=== PATIENT | female | born 1950 | race Caucasian/White ===

== ENCOUNTER → 2018-05-23 09:42 | Outpatient (CLI) | payer BC, SELFPAY ==
--- NOTE | 2018-05-23 | DI.MRI.S_ITS ---
PROCEDURE: MR ANKLE RT WO CON INDICATIONS: PAIN IN RIGHT FOOT/ANKLE TECHNIQUE: Noncontrast sagittal T1 spin echo and T2 fast spin echo with fat saturation, axial proton density fast spin echo and T2 fast spin echo with fat saturation, coronal T1 spin echo and T2 fast spin echo with fat saturation through the ankle/hindfoot. COMPARISON: None. FINDINGS: Image quality: Excellent. Bones and joints: No definite traumatic bone marrow contusions or fractures, but there is a 1.7 cm diameter area of marrow edema involving the medial talar dome where degenerative osteoarthritic joint space thinning is associated with a small subchondral cortical defect just above the epicenter of the marrow edema beneath. This has an appearance suggestive of an osteochondral defect, likely chronic, with reactive marrow edema. No hindfoot coalitions. There also is a mild degree of talonavicular joint osteoarthritis and a mild to moderate degree of degenerative osteoarthritic change and edema at the interspace between the base of the second and third tarsal bones. Intertarsal degenerative osteophyte is also can be seen at the base of the second and third tarsal bones, with subchondral cyst formation (series 4 image 31). No pathologic joint effusions. Medial structures: The posterior tibialis, flexor digitorum longus, and flexor hallucis longus tendons are intact. The posterior tibial neurovascular bundle appears normal within the tarsal tunnel, without extrinsic mass effect. The deep layer (anterior and posterior tibiotalar ligaments) and superficial layer (tibionavicular, tibiospring, and tibiocalcaneal ligaments) of the deltoid ligament appear normal. The spring ligament components (superomedial calcaneonavicular, medioplantar oblique calcaneonavicular, and inferoplantar longitudinal ligaments) are intact. Lateral structures: The anterior talofibular, calcaneofibular, and posterior talofibular ligaments appear intact. More superiorly, the anterior and posterior tibiofibular ligaments appear intact, as is the intermalleolar ligament. The tibiofibular syndesmosis is normal in width at 2 mm or less. The peroneus longus and brevis tendons demonstrate normal location and morphology. Adjacent bony peroneal tubercle and retrotrochlear prominence are normal in size. The sinus tarsi demonstrates normal fatty signal, without edema, fibrosis, or cyst formation. Visualized sinus tarsi components (cervical ligament, interosseous talocalcaneal ligament, roots of the inferior extensor retinaculum) appear normal. The calcaneonavicular and calcaneocuboid components of the bifurcate ligament appear intact. The dorsal calcaneocuboid ligament appears intact. Anterior structures: The tibialis anterior, extensor hallucis longus, and extensor digitorum longus tendons appear intact. The dorsal talonavicular ligament appears intact. Posterior and plantar structures: Achilles tendon is intact. Medial and lateral bands of the plantar fascia are of normal thickness. No abductor digiti quinti muscle atrophy to suggest [place] neuropathy. IMPRESSION: 1. There is what appears to be a chronic osteochondral injury involving the medial talar dome, where a small defect in the subchondral cortex and the corresponding marrow edema is present over a 1.7 cm diameter area of the medullary space within the talus. Given the overlying thinning of the articular cartilage in this area degenerative origin of this abnormality is suspected. 2. There is osteoarthritic subchondral cyst formation and mild marrow edema involving the distal tarsal bones and the base of the second and third metatarsal bones, chronic in appearance and degenerative in origin. 3. Mild talonavicular degenerative osteophytic change. No ligamentous injuries found. No hindfoot or midfoot coalition identified. Dictated by: Barry Soto M.D. on 05/23/2018 at 13:31 Approved by: Barry Soto M.D. on 05/23/2018 at 13:53
== END ==
PROVIDERS: Visit Provider Podiatrist
DX: M25.571 Pain in right ankle and joints of right foot (principal); M19.071 Primary osteoarthritis, right ankle and foot
CPT/HCPCS: 73721

== ENCOUNTER 2018-11-15 09:28 | Day surgery (SDC) | payer BC, SELFPAY ==
[2018-10-30 07:29] VITALS: BMI 28.1
[2018-11-15] VITALS (8 sets, daily range): BP systolic 117–152; BP diastolic 64–87; PULSE 78–93; RESP 10–20; TEMP 36.3–36.6; O2SAT 90–100; BMI 27.9
[2018-11-15] MEDS: LACTATED RINGERS 1,000 ML 42 ML IV (10:18)
--- NOTE | 2018-11-15 11:00 | PM.PREOP ---
Pre-operative Note Interval Note History & Physical reviewed/Exam performed by Physician: Yes Changes to H&P: No
--- NOTE | 2018-11-15 11:20 | PM.OP.1 ---
Operative Date/Time/Diagnoses Date of procedure: 11/15/18 Time of procedure: 11:20 Pre-op diagnosis: Right midfoot arthritis Post-op diagnosis: same Procedure & Clinicians Procedure: Right first, second, and third tarsometatarsal joints arthrodesis Same procedure as scheduled: Yes Indications: Painful arthritis right midfoot Surgeon: Piper Hayes Click Yes if Unassisted: Yes Anesthesia Type: General Operative Notes Closure Type: primary Specimen(s): none sent Prosthetic devices, grafts, tissues, transplants, or devices: [place] 3-hole and 4-hole plates, Cotton wedge bone graft Mini-Monster cannulated 4.0 screw Gorilla 3.5 (5) and 2.7 (7) screws 1 cc DBM putty Estimated Blood Loss (mL): 30 Blood products transfused: none Tourniquet time (min): 180 Procedure in detail: The patient was brought to the operating room and placed on the operating table in the supine position. The tourniquet was placed about the right thigh. Well-padded, appropriately aligned. After induction of anesthesia the right foot and ankle were prepped and draped in the usual aseptic manner. The tourniquet was inflated. Incision was made over the 1st metatarsal cuneiform joint. The incision was deepened through subcutaneous tissues being careful to identify and retract all vital neurovascular structures. All bleeders were cauterized and ligated as necessary. Attention was then directed to the 1st metatarsocuneiform joint which was entered. The joint was taken down and a saw was used to resect the base of the 1st metatarsal and the distal leading edge of the medial cuneiform. This was done at a slight angle on the medial cuneiform to allow for closure of the intermetatarsal angle. Fish scaling was also used as was subchondral osteotome prep. The area was irrigated with copious amounts normal sterile saline. With the aid of C-arm the guidewire was placed for temporary fixation through the 1st metatarsocuneiform joint. Next the plate was trialed and using the guide the lag screw was placed from distal lateral to proximal medial. The fusion site showed good compression and closure. Corresponding screws were placed in the normal AO technique. This was reviewed on C-arm and noted to be strong and in appropriate alignment. Next the 2nd incision was made dorsally at the 2nd metatarsal base into the middle cuneiform. Dorsal to entering this, a small ball of synovium was pressing into the spurs of the 2nd tarsometatarsal joint and was easily excised. Once the resection was done of the spurring, the middle cuneiform and second metatarsal base joint was removed of its cartilaginous surfaces. Fish scaling technique and subchondral tapping was performed to either side of the former joint, and a cortical bone graft placed as well to fill that gap after irrigation. Plate and screws placed across in standard AO technique. It was found to be sturdy, good alignment and spanned entire expanse and also a little DBM putty was placed. This was verified on C-arm and found to be appropriate. This included the middle cuneiform up through the 2nd metatarsal. The same procedure was performed to the third tarsometatarsal joint. Verified to be not impinging on any other joints and intact and strong. Of note the tourniquet was deflated at 120 min with a down time of 15 min, and then reinflated for 60 minutes. At final deflation, the tourniquet was deflated and a prompt hyperemic response was seen to the foot. On each of the incisions, the subcutaneous closure was performed using Vicryl and nylon was used to close the skin. A sterile lightly compressive dressing was placed on the foot and placed in a postoperative shoe. Pt was transferred to the PACU with vital signs stable and vascular status intact. Complications: none Post-operative Condition: stable Disposition: PACU Plan for aftercare: Following a period of postoperative monitoring, the patient will be discharged to home on written and oral postoperative instructions including keeping the dressing dry and intact, avoiding ambulation on the foot, icing and elevating the foot when seated home. DVT prevention techniques have been reviewed. For the 1st postoperative visit the dressing will be changed and close to the 4th postoperative week we will have first post op x-ray. No WB prior to week 6 is initial plan, will adjust as recovery continues as necessary.
[2018-11-15] MEDS: CLINDAMYCIN 600 MG/50 ML PIGGYBACK 50 MG IV (11:40)
--- NOTE | 2018-11-15 12:09 | SUR.OPER ---
Supine on padded OR bed, head on pillow, arms secured on padded arm boards at <90 degrees abduction, legs uncrossed, safety belt at thigh, tape over blanket over lower non-operative leg.
[2018-11-15] MEDS: BUPIVACAINE 0.5% (PF) VIAL 30 ML INJ (12:13)
[2018-11-15] MEDS: LACTATED RINGERS 1,000 ML 100 ML IV (14:49)
--- NOTE | 2018-11-15 16:32 | SUR.PHASEI ---
Report to Caio, pt awake, no nausea.
[2018-11-15] MEDS: KETOROLAC 30 MG/ML VIAL IV (16:35)
[2018-11-15] MEDS: fentaNYL 100 MCG/2 ML INJ 50 MCG IV (16:35)
--- NOTE | 2018-11-15 16:40 | SUR.PHASEI ---
Assumed care at 1633. Pt reported 6/10 RT foot pain. Medicated.
[2018-11-15] MEDS: BENZOCAINE/MENTHOL 1 LOZ PKT 1 EACH PO (17:11)
[2018-11-15] MEDS: HYDROCODONE/ACET 5/325 TABLET 1 TAB PO (17:29)
--- NOTE | 2018-11-15 17:33 | SUR.PHASEII ---
Report to Nirali. Pt sitting up, reported 4/10 foot pain. Throat pain improved with lozenge. Tolerated snack, medicated with hydrocodone for foot pain.
== END 2018-11-15 18:30 | disposition home or self-care (01) ==
PROVIDERS: PCP Family Medicine; Visit Provider Podiatrist
PROC: (CPT 28730; principal; 2018-11-15 11:15)
DX: M19.071 Primary osteoarthritis, right ankle and foot (principal); I10 Essential (primary) hypertension; E78.5 Hyperlipidemia, unspecified
CPT/HCPCS: 28730; J1100; J1885; J2405; J2704; J3010

== ENCOUNTER → 2020-03-16 10:39 | Outpatient (CLI) | payer BC, SELFPAY ==
--- NOTE | 2020-03-16 | DI.US.S_ITS ---
PROCEDURE: US ABDOMEN COMPLETE INDICATIONS: Right upper quadrant pain TECHNIQUE: Real-time scanning was performed of the abdominal and retroperitoneal organs, with image documentation. COMPARISON: None. FINDINGS: Liver: Liver is moderately enlarged in size at 19 cm craniocaudad, and homogeneous in echotexture open (with generalized fatty infiltration and relative sparing of fatty infiltration adjacent to the gallbladder fossa). Gallbladder: The gallbladder appears normal. Biliary ducts: Intrahepatic bile ducts are non-dilated. Extrahepatic bile duct caliber measures 7.5 mm. Normal is 6-7 mm or less in diameter, or 10 mm or less post-cholecystectomy. Pancreas: Visualized portions of the pancreas are sonographically normal. Spleen: Spleen is normal in size and homogeneous in echotexture. Kidneys: Kidneys are normal in size and echotexture. Right kidney measures 11.5 cm long; left kidney measures 11.7 cm long. No hydronephrosis or nephrolithiasis. No solid masses. Aorta: Visualized aorta is normal in caliber at less than 3 cm. Iliacs: Proximal common iliac arteries are normal in caliber at less than 2.5 cm. IVC: Intrahepatic inferior vena cava is patent. Miscellaneous: No free abdominal fluid. IMPRESSION: Fatty infiltrated moderately enlarged liver, with focal sparing of fatty infiltration at the margin of the gallbladder fossa. No biliary obstruction is suspected. No evidence of acute cholecystitis. No ascites or varices are found. Please correlate for etiology of hepatic steatosis. Dictated by: Barry Soto M.D. on 03/16/2020 at 13:27 Approved by: Barry Soto M.D. on 03/16/2020 at 13:30
== END ==
PROVIDERS: PCP Family Medicine; Referring Provider Family Medicine; Visit Provider Family Medicine
DX: R10.11 Right upper quadrant pain (principal); K76.0 Fatty (change of) liver, not elsewhere classified
CPT/HCPCS: 76700

== ENCOUNTER → 2020-04-15 09:09 | Outpatient (CLI) | payer BC, SELFPAY ==
--- NOTE | 2020-04-15 | DI.NM.S_ITS ---
PROCEDURE: NM HIDA WITH CCK PHARMACEUTICAL: 5.5 mCi Tc-99m mebrofenin IV; 1.7 mcg CCK IV. INDICATIONS: Right upper quadrant pain TECHNIQUE: Following intravenous administration of Tc-99m mebrofenin, sequential anterior abdominal images were obtained. To evaluate the contractile response of the gallbladder in response to Cholecystokinin (CCK), sincalide (0.02 ?g/kg) was administered by slow intravenous infusion approximately 60 minutes after the administration of the radiopharmaceutical. Sequential imaging was continued for 30 minutes after the start of CCK infusion. Gallbladder ejection fraction was calculated. COMPARISON: [facility], , US ABDOMEN COMPLETE, 03/16/2020, 10:46. FINDINGS: Biliary scan: There is normal tracer uptake and excretion by the liver. There is normal visualization of the intrahepatic ducts, common bile duct, and gallbladder. There is normal tracer transit into the duodenum. CCK stimulation: There is normal contractile response of the gallbladder to CCK infusion. The calculated gallbladder ejection fraction is 66%; normal values are above 35%. It has been shown that any patient abdominal pain after CCK administration is related to the rate of CCK injection, rather than to any underlying gallbladder disease (Clinical Nuclear Medicine 2012; 37: 63-70. Journal of Nuclear Medicine 2014; 55: 1-9). IMPRESSION: 1. Normal filling of gallbladder. No evidence for acute cholecystitis. 2. Normal contractile response of gallbladder to CCK stimulation. Dictated by: Tony Monsivais M.D. on 04/15/2020 at 11:23 Approved by: Tony Monsivais M.D. on 04/15/2020 at 11:26
== END ==
PROVIDERS: PCP Family Medicine; Referring Provider Family Medicine; Visit Provider Family Medicine
DX: R10.11 Right upper quadrant pain (principal); K76.0 Fatty (change of) liver, not elsewhere classified
CPT/HCPCS: 78227; A9537; J2805

== ENCOUNTER → 2020-10-22 11:53 | Outpatient (CLI) | payer BC, SELFPAY ==
--- NOTE | 2020-10-22 | DI.MRI.S_ITS ---
PROCEDURE: MR ANKLE LT WO/W CON INDICATIONS: ganglion, left ankle and foot TECHNIQUE: Noncontrast sagittal T1 spin echo and T2 fast spin echo with fat saturation, axial proton density fast spin echo and T2 fast spin echo with fat saturation, axial T1 spin echo with fat saturation, coronal T1 spin echo and T2 fast spin echo with fat saturation through the ankle/hindfoot. Post-contrast axial, coronal, and sagittal T1 spin echo with fat saturation through the ankle/hindfoot. COMPARISON: None. FINDINGS: Bones and joints: Bones: No marrow contusions or fractures. Coalitions: No hindfoot coalitions. Talar dome: No osteochondral injuries of the talar dome. Other: No pathologic joint effusions. There is focal fluid seen at the posterior aspect of the tibiotalar and subtalar joints, possibly effusion within the posterior recess although cannot exclude synovial or ganglion cyst. Image 17/6. Medial structures: Posterior tibialis: Intact. Flexor digitorum longus: Intact. Flexor hallucis longus: Intact. Posterior tibial neurovascular bundle: Normal. Deltoid ligament complex: Intact. Spring ligament: Intact. Lateral structures: Anterior talofibular ligament: Intact. Calcaneofibular ligament: Intact. Posterior talofibular ligament: Intact. Anterior tibiofibular ligament: Intact. Posterior tibiofibular ligament: Intact. Intermalleolar ligament: Intact. Tibiofibular syndesmosis: Normal. Peroneus longus: Intact. Peroneus brevis: Intact. There is mild tenosynovitis. Bony peroneal tubercle and retrotrochlear prominence: Normal. Sinus tarsi: In the region of the sinus tarsi, there is a small fluid collection measuring 1.0 x 0.8 cm seen on image 30/4, image 16/6 which could represent a ganglion cyst. No associated or internal enhancement. Anterior structures: Tibialis anterior: Intact. Extensor hallucis longus: Intact. Extensor digitorum longus: Intact. Dorsal talonavicular ligament: Intact. Posterior and plantar structures: Achilles tendon: Mild distal tendinopathy. Plantar fascia: Mild medial band plantar fasciitis at the calcaneal attachment. Muscles: No abductor digiti quinti muscle atrophy to suggest [place] neuropathy. IMPRESSION: Small fluid collection at the lateral aspect of the sinus tarsi possibly ganglion cyst. Additional focal fluid seen at the posterior aspect of the tibiotalar and subtalar joints although unclear if this reflects joint effusion, versus synovial/ganglion cyst. Distal Achilles tendinopathy Medial band plantar fasciitis Dictated by: Сергей Damon M.D. on 10/22/2020 at 13:34 Approved by: Сергей Damon M.D. on 10/22/2020 at 14:00
== END ==
PROVIDERS: Referring Provider Podiatrist; Visit Provider Podiatrist
DX: M67.472 Ganglion, left ankle and foot (principal); M72.2 Plantar fascial fibromatosis
CPT/HCPCS: 73723

== ENCOUNTER → 2020-11-27 11:29 | Outpatient (CLI) | payer BC, SELFPAY ==
[2020-11-27 18:22] LABS: Add Manual Diff / Slide Review NO; Basophils Absolute Auto 0 /uL (0-100); Basophils Percent Auto 0.8 % (0-2); Eosinophils Absolute Auto 200 /uL (0-450); Eosinophils Percent Auto 2.8 % (2-4); Hematocrit 39.1 % (36-46); Lymphocytes Absolute Auto 1300 /uL (1100-4500); Lymphocytes Percent Auto 24.1 % (25-40); Mean Corpuscular HGB Conc 33.3 % (30-36); Mean Corpuscular Hemoglobin 29.1 PG (26-34); Mean Corpuscular Volume 87.4 fL (80-100); Monocytes Absolute Auto 400 /uL (0-900); Monocytes Percent Auto 7.9 % (3-14); Neutrophils Absolute Auto 3600 /uL (1500-7000); Neutrophils Percent Auto 64.4 % (50-75); Platelet Count 261 X10^3/uL (150-400); Red Blood Cell Count 4.48 X10^6/uL (4.0-5.2); Red Cell Distribution Width 13.4 % (11.6-14.8); White Blood Cell Count 5.6 X10^3/uL (4.5-11.0)
[2020-11-27 18:32] LABS: Alanine Aminotransferase 28 IU/L (<35); Albumin 4.1 g/dL (3.5-5.0); Albumin Globulin Ratio 1.7 (1.0-2.8); Alkaline Phosphatase 67 U/L (38-126); Aspartate Aminotransferase 30 IU/L (14-36); Bilirubin Total 0.4 mg/dL (0.2-1.3); Blood Urea Nitrogen 22 mg/dL (7-17); Calcium 9.7 mg/dL (8.4-10.2); Carbon Dioxide 28 mmol/L (22-32); Chloride 104 mmol/L (98-107); Globulin 2.4 g/dL (1.7-4.1); Glucose 67 mg/dL (80-110); HEMOLYSIS < 15 (0-50); Potassium 4.2 mmol/L (3.4-5.1); Sodium 140 mmol/L (137-145); Total Protein 6.5 g/dL (6.3-8.2)
== END ==
PROVIDERS: PCP Family Medicine; Visit Provider Family Medicine
DX: Z01.818 Encounter for other preprocedural examination (principal)
CPT/HCPCS: 80053; 85025

== ENCOUNTER → 2021-01-12 09:59 | Outpatient (CLI) | payer BC, SELFPAY ==
[2021-01-12 19:29] LABS: Alanine Aminotransferase 24 IU/L (<35); Albumin Globulin Ratio 1.6 (1.0-2.8); Alkaline Phosphatase 71 U/L (38-126); Aspartate Aminotransferase 25 IU/L (14-36); Bilirubin Total 0.4 mg/dL (0.2-1.3); Blood Urea Nitrogen 26 mg/dL (7-17); Calcium 9.9 mg/dL (8.4-10.2); Carbon Dioxide 30 mmol/L (22-32); Chloride 107 mmol/L (98-107); Estimated Glomerular Filt Rate 45.2 mL/min (>60); Globulin 2.5 g/dL (1.7-4.1); Glucose 95 mg/dL (80-110); HEMOLYSIS < 15 (0-50); Potassium 4.2 mmol/L (3.4-5.1); Sodium 144 mmol/L (137-145); Total Protein 6.5 g/dL (6.3-8.2)
== END ==
PROVIDERS: PCP Family Medicine; Referring Provider Family Medicine; Visit Provider Family Medicine
DX: I10 Essential (primary) hypertension (principal); N18.9 Chronic kidney disease, unspecified
CPT/HCPCS: 80053

== ENCOUNTER → 2021-11-11 10:36 | Outpatient (CLI) | payer BC, SELFPAY ==
[2021-11-11 20:01] LABS: Alanine Aminotransferase 30 IU/L (<35); Albumin 4.1 g/dL (3.5-5.0); Albumin Globulin Ratio 1.7 (1.0-2.8); Alkaline Phosphatase 80 U/L (38-126); Aspartate Aminotransferase 27 IU/L (14-36); BUN Creatinine Ratio 20.2 (6-22); Bilirubin Total 0.5 mg/dL (0.2-1.3); Blood Urea Nitrogen 23 mg/dL (7-17); Calcium 9.2 mg/dL (8.4-10.2); Carbon Dioxide 25 mmol/L (22-32); Chloride 105 mmol/L (98-107); Estimated Glomerular Filt Rate 51 mL/min (>60); Globulin 2.4 g/dL (1.7-4.1); Glucose 95 mg/dL (80-110); HEMOLYSIS < 15 (0-50); Potassium 4.1 mmol/L (3.4-5.1); Sodium 141 mmol/L (137-145); Total Protein 6.5 g/dL (6.3-8.2)
== END ==
PROVIDERS: PCP Family Medicine; Visit Provider Family Medicine
DX: R79.89 Other specified abnormal findings of blood chemistry (principal)
CPT/HCPCS: 80053

== ENCOUNTER → 2022-09-08 13:20 | Outpatient (CLI) | payer BC, SELFPAY ==
[2022-09-08 19:51] LABS: Add Manual Diff / Slide Review NO; Basophils Absolute Auto 100 /uL (0-100); Basophils Percent Auto 0.7 % (0-2); Eosinophils Absolute Auto 200 /uL (0-450); Eosinophils Percent Auto 2.5 % (2-4); Hematocrit 38.9 % (36-46); Hemoglobin 13.5 g/dL (12.0-16.0); Lymphocytes Absolute Auto 1400 /uL (1100-4500); Lymphocytes Percent Auto 19.3 % (25-40); Mean Corpuscular HGB Conc 34.8 % (30-36); Mean Corpuscular Hemoglobin 30.1 PG (26-34); Mean Corpuscular Volume 86.7 fL (80-100); Monocytes Absolute Auto 400 /uL (0-900); Monocytes Percent Auto 6.3 % (3-14); Neutrophils Absolute Auto 5100 /uL (1500-7000); Neutrophils Percent Auto 71.2 % (50-75); Platelet Count 295 X10^3/uL (150-400); Red Blood Cell Count 4.48 X10^6/uL (4.0-5.2); Red Cell Distribution Width 13.2 % (11.6-14.8); White Blood Cell Count 7.2 X10^3/uL (4.5-11.0)
[2022-09-08 20:00] LABS: BUN Creatinine Ratio 26.7 (6-22); Blood Urea Nitrogen 31 mg/dL (7-17); Calcium 9.4 mg/dL (8.4-10.2); Carbon Dioxide 28 mmol/L (22-32); Chloride 100 mmol/L (98-107); Estimated Glomerular Filt Rate 50 mL/min (>60); Glucose 84 mg/dL (80-110); HEMOLYSIS < 15 (0-50); Potassium 3.8 mmol/L (3.4-5.1); Sodium 137 mmol/L (137-145)
[2022-09-08 20:24] LABS: TSH w/ Reflex to FT4 2.55 uIU/mL (0.47-4.68)
[2022-09-08 20:45] LABS: Vitamin B12 861 pg/mL (239-931)
== END ==
PROVIDERS: PCP Family Medicine; Visit Provider Family Medicine
DX: I25.111 Atherosclerotic heart disease of native coronary artery with angina pectoris with documented spasm (principal); R00.0 Tachycardia, unspecified; R55 Syncope and collapse
CPT/HCPCS: 80048; 82607; 84443; 85025

== ENCOUNTER → 2022-10-18 13:31 | Outpatient (CLI) | payer BC, SELFPAY ==
[2022-10-18 20:57] LABS: Creatinine Urine Random 116.2 mg/dL
[2022-10-18 20:58] LABS: Protein (Total) Urine Random < 5 mg/dL (0-12); Protein Creatinine Ratio Urine 0.04 GRAM/24H
== END ==
PROVIDERS: PCP Family Medicine; Visit Provider Family Medicine
DX: N18.9 Chronic kidney disease, unspecified (principal)
CPT/HCPCS: 82570; 84156

== ENCOUNTER → 2022-11-17 11:48 | Outpatient (CLI) | payer BC, SELFPAY ==
[2022-11-17 20:05] LABS: BUN Creatinine Ratio 23.6 (6-22); Blood Urea Nitrogen 25 mg/dL (7-17); Calcium 8.9 mg/dL (8.4-10.2); Carbon Dioxide 28 mmol/L (22-32); Chloride 102 mmol/L (98-107); Estimated Glomerular Filt Rate 55 mL/min (>60); Glucose 94 mg/dL (80-110); HEMOLYSIS < 15 (0-50); Sodium 138 mmol/L (137-145)
== END ==
PROVIDERS: PCP Family Medicine; Visit Provider Family Medicine
DX: N18.9 Chronic kidney disease, unspecified (principal)
CPT/HCPCS: 80048

== ENCOUNTER → 2023-01-17 11:20 | Outpatient (CLI) | payer BC, SELFPAY ==
[2023-01-17 19:37] LABS: HEMOLYSIS < 15 (0-50); Iron 78 ug/dL (37-170)
[2023-01-17 19:52] LABS: Percent Iron Saturation 23 % (15-50); Total Iron Binding Capacity 335 ug/dL (265-497); Transferrin 280 mg/dL (206-381)
[2023-01-17 20:15] LABS: Ferritin 33 ng/mL (11-264)
[2023-01-20 06:40] LABS: Calcium 9.4 mg/dL (8.7-10.3); Parathyroid Hormone, Intact 34 pg/mL (15-65)
== END ==
PROVIDERS: PCP Family Medicine; Visit Provider Family Medicine
DX: M25.562 Pain in left knee (principal); M11.20 Other chondrocalcinosis, unspecified site
CPT/HCPCS: 82310; 82728; 83540; 83550; 83970

== ENCOUNTER → 2023-05-22 09:03 | Outpatient (CLI) | payer BC, SELFPAY ==
--- NOTE | 2023-05-22 09:05 | DI.MG.S_ITS ---
BILATERAL DIGITAL SCREENING MAMMOGRAM 3D/2D WITH CAD: 05/22/2023 CLINICAL: Routine screening. Default Baseline exam. No prior exams were available for comparison. Both breasts are heterogeneously dense, which may obscure small masses (category c / 51-75% glandular tissue). Current study was also evaluated with a Computer Aided Detection (CAD) system. There is a focal asymmetry in the right breast at 12 o'clock anterior depth. There is a focal asymmetry in the left breast at 5 o'clock anterior depth. No other significant masses or calcifications are seen in either breast. IMPRESSION: INCOMPLETE: NEEDS ADDITIONAL IMAGING EVALUATION The focal asymmetry in the right breast at 12 o'clock anterior depth is indeterminate. Additional views with possible ultrasound are recommended. The focal asymmetry in the left breast at 5 o'clock anterior depth is indeterminate. Additional views with possible ultrasound are recommended. Based on the Tyrer Cuzick model (a risk assessment model) the patient's lifetime risk is 6.9% and her 10 year risk is 5.7%. According to the ACR, ACS, and NCCN guidelines, an annual breast MRI exam along with mammogram is recommended if the patient's lifetime risk is 20% or greater. This exam was interpreted at Station ID: [id number]. NOTE: For mammograms, a report in lay terms will be sent to the patient. Approximately 15% of breast malignancies will not be visualized mammographically. In the management of a palpable breast mass, a negative mammogram must not discourage biopsy of a clinically suspicious lesion. Electronically Signed By: Airam almazan/mary:05/22/2023 10:37:06 letter sent: Additional Imaging Needed ACR BI-RADS Category 0: Incomplete 3340F
--- NOTE | 2023-05-22 09:05 | DI.US.S_ITS ---
PROCEDURE: US ABDOMEN LIMITED INDICATIONS: CHRONIC RIGHT UPPER QUADRANT PAIN TECHNIQUE: Real-time scanning was performed of the abdominal and retroperitoneal organs, with image documentation. COMPARISON: [facility], US, US ABDOMEN COMPLETE, 03/16/2020, 10:46. FINDINGS: Liver: Liver is normal in size and homogeneous in echotexture. Liver parenchyma is diffusely echogenic. Anechoic lesion measuring 1.5 x 1.5 x 1 cm in the right hepatic lobe. Focal area of fatty sparing adjacent to the gallbladder fossa measuring 3.8 x 1.1 x 2.3 cm. Gallbladder: Hyperechoic polyp measuring 4 x 5 x 6 mm. No stones or sludge. No wall thickness. No pericholecystic fluid. Biliary ducts: Intrahepatic bile ducts are non-dilated. Extrahepatic bile duct is not well seen. Pancreas: Not well seen secondary to bowel gas. IMPRESSION: Evaluation is limited secondary to steatosis and bowel gas artifact. 1. Liver parenchyma is diffusely echogenic which may be seen in the setting of parenchymal disease such as steatosis. 2. Simple cyst in the right hepatic lobe measuring 1.5 x 1.5 x 1 cm. This was not well seen on prior ultrasound. 3. Gallbladder polyp measuring 4 x 5 x 6 mm. Given this was not well seen on prior ultrasound, recommend repeat ultrasound in 6 months to document stability. Dictated by: Jake Kerr M.D. on 05/22/2023 at 13:18 Approved by: Jake Kerr M.D. on 05/22/2023 at 14:31
--- NOTE | 2023-05-22 09:05 | DI.ECHO.S_ITS ---
[facility] +---------+ Hospital +---------+ : : [address] [place] : : : : [id number] : : : : Phone: [phone]+ Echocardiogram Report + + :Name: RICK GHOSH Study Date: 05/22/2023 Height: 67 in : :[facility] ReadingLocation: Weight: 189 lb : : Gender: Female BSA: 2.0 m2 : :: 1950 Age: 72 yrs BP: 138/85 mmHg: :Reason For Study: PALPITATIONS, SVT : :Ordering Physician: AMINAH, : :PATY Performed By: Fernanda Garsia : :Referring: PATY BURR : + + Interpretation Summary Normal left ventricle size with ejection fraction 60-65%. The aortic valve is mildly calcified. Mild mitral annular calcification. Mild tricuspid regurgitation. Procedure: A two-dimensional transthoracic echocardiogram with color flow and Doppler was performed. The study quality was technically adequate. There is no prior echocardiogram noted for this patient. The patient was in sinus rhythm with heart rates between 58-75 bpm during the exam. Left Ventricle: The left ventricle is normal in size and wall thickness. The ejection fraction is estimated to be 60-65%. There are no focal wall motion abnormalities. Right Ventricle: The right ventricle is normal in size and function. Atria: The left atrial size is normal. Right atrial size is normal. There is no Doppler evidence for an interatrial shunt. Mitral Valve: There is mild mitral annular calcification. The mitral valve leaflets appear borderline thickened, but open well. There is trace mitral regurgitation. Aortic Valve: The aortic valve is trileaflet. The aortic valve opens well. The aortic valve is mildly calcified. There is no aortic valve stenosis. There is trace aortic regurgitation. Tricuspid Valve: The tricuspid valve is normal in structure and function. There is mild tricuspid regurgitation. The right ventricular systolic pressure is estimated to be at least 30 mmHg based on an estimated right atrial pressure of 3 mm Hg. Pulmonic Valve: The pulmonic valve leaflets are thin and pliable; valve motion is normal. There is no pulmonic valvular regurgitation. Great Vessels: The aortic root is normal size. The dimensions of the ascending aorta are normal. The IVC is of normal diameter and collapses greater than 50% with a sniff. This suggests a low right atrial pressure of 3 mm Hg. Pericardium/ Pleura There is no pericardial effusion. There is no pleural effusion. MMode/2D Measurements & Calculations LVIDd: 4.9 cm LVOT diam: 2.1 cm LVIDs: 3.1 cm Ao root diam: 3.2 cm FS: 37.0 % asc Aorta Diam: 3.4 cm IVSd: 0.90 cm Ao Arch Diam (Prox Trans): 3.1 cm LVPWd: 1.0 cm LV vaughan. diameter/BSA (cm/m^2): 2.5 LV sys. diameter/BSA (cm/m^2): 1.6 LA A2 area: 19.0 cm2 RA long axis: 3.4 cm LA A4 area: 15.4 cm2 RA area: 9.5 cm2 LA length (vol): 4.9 cm RA vol: 22.6 ml LA vol: 50.4 ml RA : 11.5 ml/m2 LA vol index: 25.5 ml/m2 IVC diam: 2.0 cm RVD1 (basal): 3.1 cm TAPSE: 2.0 cm Doppler Measurements & Calculations Ao V2 max: 130.8 cm/sec LVOT Max Girish: 76.2 cm/sec Ao V2 mean: 88.5 cm/sec LV V1 max P.3 mmHg Ao max P.9 mmHg LV V1 VTI: 21.4 cm Ao mean P.6 mmHg ANDREIA(I,D): 2.5 cm2 Ao V2 VTI: 30.4 cm ANDREIA(V,D): 2.1 cm2 sev ratio: 0.70 ANDREIA indexed to BSA (cm^2/m^2): 1.3 MV E max girish: 68.8 cm/sec TR max girish: 260.1 cm/sec MV A max girish: 53.1 cm/sec TR max P.1 mmHg MV E/A: 1.3 PA pr(Accel): 24.2 mmHg Med Peak E' Girish: 5.0 cm/sec E/E' med: 13.7 Lat Peak E' Girish: 7.6 cm/sec E/E' lat: 9.1 E/e' average: 11.4 MV dec time: 0.17 sec SV([facility]): 75.7 ml Electronically signed by: Sanchez Lu on Reading Physician:05/22/2023 01:01
== END ==
PROVIDERS: PCP Family Medicine; Referring Provider Family Medicine; Visit Provider Physician Assistant
DX: Z12.31 Encounter for screening mammogram for malignant neoplasm of breast (principal); R92.333 Mammographic heterogeneous density, bilateral breasts; I08.1 Rheumatic disorders of both mitral and tricuspid valves; K76.89 Other specified diseases of liver; K82.4 Cholesterolosis of gallbladder; I47.10 Supraventricular tachycardia, unspecified; I25.2 Old myocardial infarction; R10.11 Right upper quadrant pain; R10.13 Epigastric pain; K44.9 Diaphragmatic hernia without obstruction or gangrene; K21.9 Gastro-esophageal reflux disease without esophagitis; R11.2 Nausea with vomiting, unspecified; R14.0 Abdominal distension (gaseous); Z86.010 Personal history of colon polyps
CPT/HCPCS: 76705; 77063; 77067; 93306

== ENCOUNTER → 2023-09-19 09:22 | Outpatient (CLI) | payer BC, SELFPAY ==
--- NOTE | 2023-09-19 09:23 | DI.US.S_ITS ---
PROCEDURE: US PERIPH VENOUS LOW EXTREM RT INDICATIONS: right leg pain TECHNIQUE: Real-time imaging, as well as color and pulse Doppler interrogation, were performed of the lower extremity deep veins from the inguinal ligament to the popliteal fossa, with documentation of the visualized calf veins. COMPARISON: None. FINDINGS: The common femoral, femoral, popliteal, and the visualized calf veins are normally compressible, and free of intraluminal thrombus. Color and pulse Doppler demonstrate normal phasic intraluminal flow. There is normal augmentation response to distal compression maneuver. Small knee joint effusion. IMPRESSION: No findings of lower extremity deep venous thrombosis. Dictated by: Salty Odom M.D. on 09/19/2023 at 10:27 Approved by: Salty Odom M.D. on 09/19/2023 at 10:28
--- NOTE | 2023-09-19 09:23 | DI.RAD.S_ITS ---
PROCEDURE: XR KNEE RT 3V INDICATIONS: right leg pain TECHNIQUE: 3 views of the knee were acquired. COMPARISON: [facility] [place], XR KNEE LT 3V, 12/29/2022, 8:47. FINDINGS: Bones: No fractures or dislocations. No suspicious bony lesions. Mild tricompartmental degenerative changes of the right knee. Soft tissues: No joint effusion. No suspicious soft tissue calcifications. IMPRESSION: No acute bony abnormality or significant effusion. Mild tricompartmental degenerative changes. Dictated by: Kumar Kay M.D. on 09/19/2023 at 13:03 Approved by: Kumar Kay M.D. on 09/19/2023 at 13:04
== END ==
PROVIDERS: PCP Family Medicine; Referring Provider Family Medicine; Visit Provider Family Medicine
DX: M25.461 Effusion, right knee (principal); M79.604 Pain in right leg
CPT/HCPCS: 73562; 93971

== ENCOUNTER → 2023-10-03 15:32 | Outpatient (CLI) | payer BC, SELFPAY | PROVIDERS: PCP Family Medicine; Visit Provider Physician Assistant | DX: J02.9 Acute pharyngitis, unspecified (principal) | CPT/HCPCS: 87070; 87077 ==

== ENCOUNTER → 2023-11-22 12:57 | Outpatient (CLI) | payer BC, SELFPAY ==
[2023-11-22 19:47] LABS: Alanine Aminotransferase 20 IU/L (<35); Albumin Globulin Ratio 1.7 (1.0-2.8); Alkaline Phosphatase 104 U/L (38-126); Aspartate Aminotransferase 26 IU/L (14-36); BUN Creatinine Ratio 17.9 (6-22); Bilirubin Total 0.5 mg/dL (0.2-1.3); Blood Urea Nitrogen 21 mg/dL (7-17); Calcium 9.6 mg/dL (8.4-10.2); Carbon Dioxide 25 mmol/L (22-32); Chloride 107 mmol/L (98-107); Estimated Glomerular Filt Rate 49 mL/min (>60); Globulin 2.3 g/dL (1.7-4.1); Glucose 91 mg/dL (80-110); HEMOLYSIS < 15 (0-50); Sodium 139 mmol/L (137-145); Total Protein 6.3 g/dL (6.3-8.2)
[2023-11-22 19:48] LABS: Add Manual Diff / Slide Review NO; Basophils Absolute Auto 0 /uL (0-100); Basophils Percent Auto 0.6 % (0-2); Eosinophils Absolute Auto 100 /uL (0-450); Eosinophils Percent Auto 1.8 % (2-4); Hematocrit 39.4 % (36-46); Hemoglobin 13.3 g/dL (12.0-16.0); Lymphocytes Absolute Auto 1300 /uL (1100-4500); Lymphocytes Percent Auto 18.6 % (25-40); Mean Corpuscular HGB Conc 33.7 % (30-36); Mean Corpuscular Hemoglobin 29.2 PG (26-34); Mean Corpuscular Volume 86.6 fL (80-100); Monocytes Absolute Auto 400 /uL (0-900); Monocytes Percent Auto 6.5 % (3-14); Neutrophils Absolute Auto 5000 /uL (1500-7000); Neutrophils Percent Auto 72.5 % (50-75); Platelet Count 271 X10^3/uL (150-400); Red Blood Cell Count 4.55 X10^6/uL (4.0-5.2); Red Cell Distribution Width 13.6 % (11.6-14.8); White Blood Cell Count 6.9 X10^3/uL (4.5-11.0)
[2023-11-22 19:58] LABS: LDL Cholesterol Direct 152 mg/dL (<100)
== END ==
PROVIDERS: PCP Family Medicine; Visit Provider Family Medicine
DX: R25.2 Cramp and spasm (principal); I10 Essential (primary) hypertension; R92.8 Other abnormal and inconclusive findings on diagnostic imaging of breast; I25.111 Atherosclerotic heart disease of native coronary artery with angina pectoris with documented spasm; E78.5 Hyperlipidemia, unspecified; K76.0 Fatty (change of) liver, not elsewhere classified
CPT/HCPCS: 80053; 83721; 84443; 85025

== ENCOUNTER → 2023-11-24 12:27 | Outpatient (CLI) | payer BC, SELFPAY ==
--- NOTE | 2023-11-24 12:28 | DI.ECHO.S_ITS ---
[facility] : : [address] : : [place] : : [id number] : : Phone: [phone] Echocardiogram Report + + :Name: RICK GHOSH Study Date: 11/24/2023 Height: 67 in : :[facility] ReadingLocation: Weight: 176 lb : : Gender: Female BSA: 1.9 m2 : :: 1950 Age: 73 yrs BP: 161/95 mmHg: :Reason For Study: ESSENTIAL HYPERTENSION : :Ordering Physician: SAMUEL, : :JESUSITA Performed By: Joel Arce : :Referring: UNSPECIFIED : + + Interpretation Summary Normal sinus rhythm. Normal LV size; mild concentric LVH; normal wall motion and LV systolic function. EF is 60-65%. Stage I diastolic dysfunction. Mild LA enlargement; otherwise normal chamber sizes. Mild MAC; otherwise no significant valvular abnormalities. Compared to prior echo 05/22/2023, BP is higher during current exam. Mild LVH and LA enlargement are newly described. Procedure: A two-dimensional transthoracic echocardiogram with color flow and Doppler was performed. The study quality was technically adequate. Comparison is made with the echocardiogram of 05/22/2023. The heart rate ranged between 65-78 bpm during the study. Left Ventricle: The left ventricle is normal in size. Left ventricular wall thickness is mildly increased. The ejection fraction is estimated to be 60- 65%. Right Ventricle: The right ventricle is normal size. Right ventricular systolic function is mildly reduced. Atria: The left atrium is mildly dilated. Right atrial size is normal. The interatrial septum grossly appears intact with no obvious evidence for an atrial septal defect. Mitral Valve: The mitral valve is normal. There is no mitral valve stenosis. There is mild mitral regurgitation. Aortic Valve: The aortic valve is trileaflet. The aortic valve is slightly calcified. There is no aortic valve stenosis. No aortic regurgitation is present. Tricuspid Valve: The tricuspid valve is normal. There is no tricuspid stenosis. There is mild tricuspid regurgitation. The right ventricular systolic pressure is estimated to be at least 23.5 mmHg based on an estimated right atrial pressure of 3 mm Hg. Pulmonic Valve: The pulmonic valve is not well visualized. There is no pulmonic valvular stenosis. There is a trace or physiologic amount of pulmonic regurgitation. Great Vessels: The aortic root is normal size. The dimensions of the ascending aorta are normal. The IVC is of normal diameter and collapses greater than 50% with a sniff. This suggests a low right atrial pressure of 3 mm Hg. Pericardium/ Pleura There is no pericardial effusion. There is no pleural effusion. MMode/2D Measurements & Calculations LVIDd: 4.6 cm LVOT diam: 2.0 cm LVIDs: 2.8 cm Ao root diam: 3.1 cm FS: 40.0 % asc Aorta Diam: 3.3 cm IVSd: 1.3 cm Ao Arch Diam (Prox Trans): 1.9 cm LVPWd: 0.96 cm LV vaughan. diameter/BSA (cm/m^2): 2.4 LV sys. diameter/BSA (cm/m^2): 1.4 LA A2 area: 20.8 cm2 RA long axis: 4.1 cm LA A4 area: 22.3 cm2 RA area: 10.4 cm2 LA length (vol): 5.4 cm RA vol: 22.5 ml LA vol: 73.1 ml RA : 11.8 ml/m2 LA vol index: 38.1 ml/m2 IVC diam: 1.8 cm RVD1 (basal): 3.3 cm RVD2 (mid): 2.7 cm TAPSE: 1.8 cm Doppler Measurements & Calculations Ao V2 max: 120.1 cm/sec LVOT Max Girish: 68.3 cm/sec Ao V2 mean: 82.7 cm/sec LV V1 max P.9 mmHg Ao max P.8 mmHg LV V1 VTI: 15.9 cm Ao mean P.0 mmHg ANDREIA(I,D): 2.0 cm2 Ao V2 VTI: 25.8 cm ANDREIA(V,D): 1.8 cm2 sev ratio: 0.62 ANDREIA indexed to BSA (cm^2/m^2): 1.0 MV E max girish: 46.7 cm/sec TR max girish: 225.9 cm/sec MV A max girish: 62.1 cm/sec TR max P.5 mmHg MV E/A: 0.75 PA V2 max: 79.9 cm/sec Med Peak E' Girish: 3.9 cm/sec PA V2 mean: 53.2 cm/sec E/E' med: 12.1 PA mean P.3 mmHg Lat Peak E' Girish: 6.4 cm/sec PA pr(Accel): 37.9 mmHg E/E' lat: 7.3 E/e' average: 9.7 MV dec time: 0.25 sec SV(LVOT): 50.9 ml Electronically signed by: Chelsi Vaughn M.D. on [place] Physician:11/25/2023 06:24 AM
== END ==
PROVIDERS: PCP Family Medicine; Referring Provider Internal Medicine Cardiovascular Disease; Visit Provider Internal Medicine Cardiovascular Disease
DX: I08.1 Rheumatic disorders of both mitral and tricuspid valves (principal); I10 Essential (primary) hypertension
CPT/HCPCS: 93306

== ENCOUNTER → 2024-04-08 11:50 | Outpatient (CLI) | payer BC, SELFPAY ==
--- NOTE | 2024-04-08 11:51 | DI.US.S_ITS ---
PROCEDURE: US RENAL COMPLETE INDICATIONS: uncontrolled HTN TECHNIQUE: Real-time scanning was performed of the kidneys and bladder, with image documentation. COMPARISON: None. FINDINGS: Kidneys: Kidneys are normal in size. Right kidney measures 10.7 cm long; left kidney measures 11.4 cm long. Right renal cortical thickness is 1.4 cm; left renal cortical thickness is 1.3 cm. Renal cortical echotexture is increased. Moderate right-sided hydronephrosis. No solid mass. Benign, anechoic cyst on the superior pole of the left kidney. Bladder: Pre-void bladder volume is 200 mL. Post-void residual is 3 mL. Pre-void images demonstrate no intraluminal masses or stones. On pre-void images, both ureteral jets are noted with color Doppler interrogation. (Of note, ureteral jets may not be detectable in up to 25% of cases due to insufficient differences in specific gravity between ureteral and bladder urine). Miscellaneous: No free pelvic fluid. IMPRESSION: Moderate right-sided hydronephrosis. Obstructive process not excluded. Consider CT. Increased renal parenchymal echogenicity, which may indicate acute or chronic kidney disease. Dictated by: Salty Odom M.D. on 04/08/2024 at 17:09 Approved by: Salty Odom M.D. on 04/08/2024 at 17:11
== END ==
PROVIDERS: PCP Family Medicine; Referring Provider Family Medicine; Visit Provider Family Medicine
DX: I10 Essential (primary) hypertension (principal); N13.30 Unspecified hydronephrosis; N28.1 Cyst of kidney, acquired
CPT/HCPCS: 76770

== ENCOUNTER 2024-04-10 10:46 | Observation (INO) | payer BC, SELFPAY ==
[2024-04-10] VITALS (10 sets, daily range): BP systolic 114–178; BP diastolic 55–77; PULSE 78–90; RESP 15–18; TEMP 36.9–37.1; O2SAT 94–100; BMI 27.3
--- NOTE | 2024-04-10 11:29 | ED_ITS ---
HPI - Fever General Chief Complaint: Fever Stated Complaint: poss sepsis Time Seen by Provider: 04/10/24 11:15 Source: patient Mode of arrival: Ambulatory History of Present Illness HPI Narrative: Patient here with granddaughter. Complains of body aches fever chills. No coughing or dyspnea. No vomiting or diarrhea. No urinary complaints. Patient had outpatient kidney and bladder ultrasound 2 days ago by primary care done here. To review for kidney function. Ultrasound was reassuring. 15 minutes after the ultrasound she had flank pain and abdominal pain. Started having fever body aches and chills. [place] [facility] where she bent the day and was discharged at 11:00 p.m. last night. We are trying to retrieve records. She states she did have CT abdomen pelvis. However blood culture from what she describes was pending and they were called this morning to come back because of positive blood culture. Related Data Home Medications Medication Instructions Recorded Confirmed calcium 600 mg (as 1 tab PO BID 10/30/18 11/21/23 carbonate)-vitamin D3 5 mcg (200 unit) capsule (Calcium 600 + D(3)) fish, borage, flaxseed oils-omega 1 tab PO BID 10/30/18 11/21/23 3,6,9 comb no.1 1,200 mg capsule ([place] 3-6-9) lactobacillus combination no.4 3 3,000 mmu cells PO BID 10/30/18 11/21/23 billion cell capsule (Probiotic) aspirin 325 mg tablet 325 mg PO DAILY 11/15/18 11/21/23 conjugated estrogens 0.625 mg/gram 0.625 mg vaginal 2XW 11/24/20 11/21/23 vaginal cream cranberry extract PO 11/27/20 11/21/23 glucosamine HCl PO 11/27/20 11/21/23 vitamin B comp and C no.3 15 mg-10 1 cap PO DAILY 11/27/20 11/21/23 mg-50 mg-5 mg-300 mg capsule (B Complex Plus Vitamin C) sodium,potassium,mag sulfates 17.5 PO 12/27/22 11/21/23 gram-3.13 gram-1.6 gram oral soln atenolol 50 mg tablet 50 mg PO DAILY 09/15/23 11/21/23 latanoprost 0.005 % eye drops drp EYE-BOTH 09/15/23 11/21/23 losartan 50 mg tablet 50 mg PO DAILY 11/21/23 11/21/23 Previous Rx's Medication Instructions Recorded erythromycin 5 mg/gram (0.5 %) eye 1 cm EYE-RIGHT TID 06/27/22 ointment stye/conjunctivitis 8 days #3.5 grams albuterol sulfate 90 mcg/actuation See Rx Instructions inhalation 10/03/23 aerosol inhaler Q4-6H PRN shortness of breath or wheezing #6.7 grams omeprazole 20 mg capsule,delayed 40 mg (2 x 20 mg) PO DAILY for 12/23/23 release stomach symptoms #60 caps Allergies Allergy/AdvReac Type Severity Reaction Status Date / Time adhesive tape Allergy Pt did not Verified 04/10/24 10:54 list reaction almond Allergy Pt did not Verified 04/10/24 10:54 list reaction coconut Allergy Pt did not Verified 04/10/24 10:54 list reaction iodine Allergy Pt did not Verified 04/10/24 10:54 list reaction latex Allergy Pt did not Verified 04/10/24 10:54 list reaction loratadine Allergy Pt did not Verified 04/10/24 10:54 list reaction milk Allergy Pt did not Verified 04/10/24 10:54 list reaction pecan nut Allergy Pt did not Verified 04/10/24 10:54 list reaction Penicillins Allergy Pt did not Verified 04/10/24 10:54 list reaction raspberry Allergy Pt did not Verified 04/10/24 10:54 list reaction Sugars, Metabolically Active Allergy Pt did not Verified 04/10/24 10:54 list reaction sulfur dioxide Allergy Pt did not Verified 04/10/24 10:54 list reaction tramadol Allergy Pt did not Verified 04/10/24 10:54 list reaction walnut Allergy Pt did not Verified 04/10/24 10:54 list reaction wheat Allergy Pt did not Verified 04/10/24 10:54 list reaction naproxen AdvReac Gastrointestinal Verified 04/10/24 10:54 Upset cantaloupe Allergy Pt did not Uncoded 11/21/23 10:43 list reaction pcn AdvReac Unknown Uncoded 11/21/23 10:43 pain medication AdvReac Nausea, Uncoded 11/21/23 10:43 makes me non-functional Review of Systems Review of Systems Narrative: GENERAL: Positive chills, fatigue, malaise, fever, sweats. HEENT: Negative sinus pain, ear pain, sore throat RESPIRATORY: Negative dyspnea, cough CARDIOVASCULAR: Negative chest pain, palpitations GASTROINTESTINAL: Negative nausea, vomiting, abdominal pain : Negative dysuria, frequency, hematuria MUSCULOSKELETAL: Positive muscle or bony pain SKIN: Negative rash, skin lesions NEUROLOGIC: Negative weakness, numbness ROS Unobtainable: All systems reviewed & are unremarkable except as noted in HPI and below Patient History Medical History (Updated 04/10/24 @ 12:03 by Milton Giraldo MD) SVT (supraventricular tachycardia) Chronic kidney disease Breast cancer screening Post-menopausal Diverticulosis Rectal cancer (~07/2017) Myocardial infarct (~2014) CAD (coronary artery disease), [place] coronary artery Chronic neck and back pain History of angina Diverticulitis (~2004) HLD (hyperlipidemia) HTN (hypertension) Fibroid Colon polyp Hx of varicose veins Surgical History History of colonoscopy with polypectomy (~07/2017) History of dilation and curettage (~2005) Hx of heart artery stent (~2014) [place] teeth removed Hx of carpal tunnel repair Hx of shoulder surgery Hx of foot surgery History of cardiac catheterization (~2014) Social History household members: family Smoking Status: Never smoker alcohol intake: current Smoking Status: Never smoker Exam Narrative Exam Narrative: GENERAL: in no distress, not toxic not dyspneic HEAD: Normocephalic. EYES: Pupils equal round ENT: Mucous membranes moist. NECK: Trachea midline. CARDIOVASCULAR: Regular rate and rhythm RESPIRATORY: Clear to auscultation. Breath sounds equal bilaterally. No wheezes, rales, or rhonchi. GASTROINTESTINAL: Abdomen soft, non-tender no peritoneal signs bowel sounds are present. No guarding or rebound EXTREMITIES: No gross deformities. BACK: Mild right CVA tenderness NEURO: AOx4. Clear speech SKIN: Warm and dry PSYCH: Not anxious, is cooperative Initial Vital Signs Initial Vital Signs: Vital Signs Temperature 98.5 F 04/10/24 10:47 Pulse Rate 88 04/10/24 10:47 Respiratory Rate 15 04/10/24 10:47 Blood Pressure 178/77 H 04/10/24 10:47 Pulse Oximetry 94 04/10/24 10:47 Oxygen Delivery Method Room Air 04/10/24 10:47 Course Orders Ordered: ED Orders 04/10/24 11:05 CBC Auto Diff [Complete Blood Count AUTO DIFF] Stat CMP [Comprehensive Metabolic Panel] Stat Lactate (Lactic Acid) Stat Procalcitonin Stat 04/10/24 11:25 Blood Culture Stat Albuterol (Albuterol 2.5 Mg/3 Ml Neb (Adult)) 2.5 mg INH Q4H PRN PRN Reason: shortness of breath or wheezing Aspirin (Aspirin Ec 325 Mg Tablet) 325 mg PO DAILY ROSSY Atenolol (Atenolol 50 Mg Tablet) 50 mg PO DAILY ROSSY Calcium Carbonate (Calcium Carbonate 500 Mg Tab) 1 mg PO BID ROSSY Enoxaparin Sodium (Enoxaparin 40 Mg/0.4 Ml Syringe) 40 mg SUBCUT DAILY [facility] Sodium Chloride (Normal Saline 0.9%) 1,000 mls @ 60 mls/hr IV CONT ROSSY Last Admin: 04/10/24 14:09 Dose: 60 mls/hr Documented By: RW Ceftriaxone Sodium 1,000 mg/ (Sodium Chloride) 100 mls @ 200 mls/hr IV Q24H ROSSY Losartan Potassium (Losartan 50 Mg Tablet) 50 mg PO DAILY ROSSY Naloxone HCl (Naloxone 0.4 Mg/Ml Vial) 0.2 mg IV Q2MIN PRN PRN Reason: Opiate Reversal Pantoprazole Sodium (Pantoprazole Dr 40 Mg Tablet) 40 mg PO 0600 ROSSY Vitamin D (Cholecalciferol (Vitamin D3) 400 Unit Tablet) 200 unit PO BID ROSSY Discontinued Medications Ceftriaxone Sodium 2,000 mg/ (Sodium Chloride) 100 mls @ 200 mls/hr IV NOW ONE Stop: 04/10/24 11:57 Last Admin: 04/10/24 12:25 Dose: 200 mls/hr Documented By: RB Vital Signs Vital signs: Vital Signs - 8 hr 04/10/24 10:47 04/10/24 10:51 04/10/24 10:52 Temperature 98.5 F Pulse Rate 88 83 Respiratory Rate 15 Blood Pressure 178/77 H 178/77 H Pulse Oximetry 94 98 Oxygen Delivery Method Room Air 04/10/24 11:00 04/10/24 11:22 04/10/24 11:22 Temperature Pulse Rate 82 78 Respiratory Rate Blood Pressure 142/65 H Pulse Oximetry 96 98 Oxygen Delivery Method 04/10/24 11:30 04/10/24 11:30 Temperature Pulse Rate 79 Respiratory Rate Blood Pressure 138/55 L Pulse Oximetry 99 Oxygen Delivery Method MDM - Fever Lab Data 04/10/24 11:05 04/10/24 11:05 Labs: Lab Results 04/10/24 Range/Units 11:05 WBC 10.0 (4.5-11.0) X10^3/uL RBC 4.78 (4.0-5.2) X10^6/uL Hgb 13.9 (12.0-16.0) g/dL Hct 41.6 (36-46) % MCV 87.1 (80-100) fL MCH 29.2 (26-34) PG MCHC 33.5 (30-36) % RDW 14.0 (11.6-14.8) % Plt Count 222 (150-400) X10^3/uL Neut % (Auto) 88.0 H (50-75) % Lymph % (Auto) 5.5 L (25-40) % [place] % (Auto) 5.8 (3-14) % Eos % (Auto) 0.2 L (2-4) % Baso % (Auto) 0.5 (0-2) % Neut # (Auto) 8800 H (1729-2531) /uL Lymph # (Auto) 500 L (0062-8375) /uL [place] # (Auto) 600 (0-900) /uL Eos # (Auto) 0 (0-450) /uL Baso # (Auto) 0 (0-100) /uL Sodium 137 (137-145) mmol/L Potassium 3.7 (3.4-5.1) mmol/L Chloride 103 (98-107) mmol/L Carbon Dioxide 26 (22-32) mmol/L BUN 23 H (7-17) mg/dL Creatinine 1.14 H (0.52-1.04) mg/dL Estimated GFR 51 L (>60) mL/min BUN/Creatinine Ratio 20.2 (6-22) Glucose 81 (80-110) mg/dL Lactate 1.0 (0.7-2.1) mmol/L Calcium 9.3 (8.4-10.2) mg/dL Total Bilirubin 0.8 (0.2-1.3) mg/dL AST 25 (14-36) IU/L ALT 19 (<35) IU/L Alkaline Phosphatase 110 (38-126) U/L Total Protein 7.4 (6.3-8.2) g/dL Albumin 4.5 (3.5-5.0) g/dL Globulin 2.9 (1.7-4.1) g/dL Albumin/Globulin Ratio 1.6 (1.0-2.8) Procalcitonin 0.160 (<0.5) ng/mL [facility] Narrative Medical decision making narrative: Patient here with granddaughter. Complains of body aches fever chills. No coughing or dyspnea. No vomiting or diarrhea. No urinary complaints. Patient had outpatient kidney and bladder ultrasound 2 days ago by primary care done here. To review for kidney function. Ultrasound was reassuring. 15 minutes after the ultrasound she had flank pain and abdominal pain. Started having fever body aches and chills. [place] [facility] where she bent the day and was discharged at 11:00 p.m. last night. We are trying to retrieve records. She states she did have CT abdomen pelvis. However blood culture from what she describes was pending and they were called this morning to come back because of positive blood culture. After history and exam CBC CMP urinalysis, need records from [facility] procalcitonin lactic acid blood culture [facility] Medical records reviewed: Ultrasound kidneys from 2 days ago shows moderate right-sided hydronephrosis Blood culture from yesterday at [facility] were positive for Gram- negative bacilli. CT scan imaging was reviewed with urologist here. Differential considered: Includes but not limited to bacteremia sepsis pyelonephritis UTI Lab Test results independently reviewed as above. Pertinent findings: WBC 10.0 hemoglobin 13.9 sodium 137 potassium 3.7 BUN 23 creatinine 1.14 GFR 51 lactic acid 1.0 procalcitonin 0.160 Imaging studies independently reviewed: None indicated at this time Consultations: 11:[address] Ha, hospitalist, who will admit patient. Start Rocephin. 12:00 p.m.. Spoke with Urology, Dr. Nina, reviewed CT imaging from yesterday at [facility], no repeat CT imaging but just needs PVR here. Patient just voided/urinated. He will follow in consult. Treatments: Rocephin Re-evaluations: 12:10 p.m.. Updated patient she will be admitted for bacteremia. She agrees and understands Discussion: Appropriate for admission for bacteremia, Rocephin has been started. Diagnosis: Bacteremia Discharge Plan Departure Patient Disposition: Admitted as Observation Clinical Impression: Bacteremia Admit Date/Time: 04/10/24 11:57 Admit Provider: Karthikeyan Ha
[2024-04-10 11:40] LABS: Add Manual Diff / Slide Review NO; Basophils Absolute Auto 0 /uL (0-100); Basophils Percent Auto 0.5 % (0-2); Eosinophils Absolute Auto 0 /uL (0-450); Eosinophils Percent Auto 0.2 % (2-4); Hematocrit 41.6 % (36-46); Hemoglobin 13.9 g/dL (12.0-16.0); Lymphocytes Absolute Auto 500 /uL (1100-4500); Lymphocytes Percent Auto 5.5 % (25-40); Mean Corpuscular HGB Conc 33.5 % (30-36); Mean Corpuscular Hemoglobin 29.2 PG (26-34); Mean Corpuscular Volume 87.1 fL (80-100); Monocytes Absolute Auto 600 /uL (0-900); Monocytes Percent Auto 5.8 % (3-14); Neutrophils Absolute Auto 8800 /uL (1500-7000); Platelet Count 222 X10^3/uL (150-400); Red Blood Cell Count 4.78 X10^6/uL (4.0-5.2)
[2024-04-10 11:44] LABS: Alanine Aminotransferase 19 IU/L (<35); Albumin 4.5 g/dL (3.5-5.0); Albumin Globulin Ratio 1.6 (1.0-2.8); Alkaline Phosphatase 110 U/L (38-126); Aspartate Aminotransferase 25 IU/L (14-36); BUN Creatinine Ratio 20.2 (6-22); Bilirubin Total 0.8 mg/dL (0.2-1.3); Blood Urea Nitrogen 23 mg/dL (7-17); Calcium 9.3 mg/dL (8.4-10.2); Carbon Dioxide 26 mmol/L (22-32); Chloride 103 mmol/L (98-107); Estimated Glomerular Filt Rate 51 mL/min (>60); Globulin 2.9 g/dL (1.7-4.1); Glucose 81 mg/dL (80-110); HEMOLYSIS < 15 (0-50); Potassium 3.7 mmol/L (3.4-5.1); Sodium 137 mmol/L (137-145); Total Protein 7.4 g/dL (6.3-8.2)
[2024-04-10 12:09] LABS: Appearance Urine UA CLEAR; Bilirubin Urine UA NEGATIVE (NEGATIVE); Color Urine UA YELLOW; Glucose Urine UA NEGATIVE (Negative); Ketones Urine UA TRACE (NEGATIVE); Leukocyte Esterase Urine UA 1+ (NEGATIVE); Nitrite Urine UA NEGATIVE (Negative); Occult Blood Urine UA TRACE-INTACT (Negative); Protein Urine UA TRACE (Negative); Urine Volume 10mL (spun); Urobilinogen Urine UA 0.2 E.U./dL (0.2); pH Urine UA 5.5 (4.5-8.0)
[2024-04-10 12:14] LABS: RBC Urine 0-1/HPF (0-5/HPF)
[2024-04-10 12:15] LABS: Bacteria Urine None Seen; Culture Indicated Urine Specimen Cultured; Squamous Epithelial Cell Urine 1-5 /HPF (0-5/HPF); WBC Urine 5-10/HPF (0-5/HPF)
[2024-04-10] MEDS: cefTRIAXone 2,000 MG in SODIUM CHLORIDE 0.9% 100 ML 200 MG IV (12:25)
--- NOTE | 2024-04-10 13:23 | P.HP_ITS ---
History of Present Illness History of Present Illness Date Patient Seen: 04/10/24 Time Patient Seen: 13:23 Chief complaint: poss sepsis Narrative: This is a 73-year-old female with CKD, coronary artery disease, hypertension, hyperlipidemia and GERD who presents with reported blood cultures positive for Gram-negative bacilli 2/. These were done yesterday at [facility] Emergency Department in [place]. She lives on [address] so was staying over here last night and then was in the [place] line when she got a call about the positive blood cultures. She takes D-Mannose for UTI suppression and says she can not recall the last time she had one. She has had right flank pain for 2 days and then yesterday when she got a temperature of 102? she was flown up to [place] for ED attention. Her CT showed that the right renal hemipelvis was dilated with mild hydronephrosis but no actual mass or renal stone was visualized. She is afebrile here despite the bacteremia. She had been given a dose of ceftriaxone in the ED and then started on Omnicef orally today. Urology has been contacted from the emergency department to consult. The UA done yesterday showed 15-20 wbc's and negative nitrites. The wbc in the urine here today is 5-10 and the nitrates are again negative. The white blood count was 12.3 yesterday and is now 10.0. [facility] Medical History SVT (supraventricular tachycardia) Chronic kidney disease Breast cancer screening Post-menopausal Diverticulosis Rectal cancer (~07/2017) Myocardial infarct (~2014) CAD (coronary artery disease), [place] coronary artery Chronic neck and back pain History of angina Diverticulitis (~2004) HLD (hyperlipidemia) HTN (hypertension) Fibroid Colon polyp Hx of varicose veins Surgical History History of colonoscopy with polypectomy (~07/2017) History of dilation and curettage (~2005) Hx of heart artery stent (~2014) [place] teeth removed Hx of carpal tunnel repair Hx of shoulder surgery Hx of foot surgery History of cardiac catheterization (~2014) Social History household members: family Smoking Status: Never smoker alcohol intake: current Meds Home Medications and Allergies Home Medications Medication Instructions Recorded Confirmed Type aspirin 325 mg tablet 81 mg PO DAILY 11/15/18 04/10/24 History losartan 50 mg tablet 50 mg PO DAILY 11/21/23 04/10/24 History omeprazole 20 mg capsule,delayed 40 mg (2 x 20 mg) PO DAILY for 12/23/23 04/10/24 Rx release stomach symptoms #60 caps Allergies Allergy/AdvReac Type Severity Reaction Status Date / Time adhesive tape Allergy Pt did not Verified 04/10/24 10:54 list reaction almond Allergy Pt did not Verified 04/10/24 10:54 list reaction coconut Allergy Pt did not Verified 04/10/24 10:54 list reaction iodine Allergy Pt did not Verified 04/10/24 10:54 list reaction latex Allergy Pt did not Verified 04/10/24 10:54 list reaction loratadine Allergy Pt did not Verified 04/10/24 10:54 list reaction milk Allergy Pt did not Verified 04/10/24 10:54 list reaction pecan nut Allergy Pt did not Verified 04/10/24 10:54 list reaction Penicillins Allergy Pt did not Verified 04/10/24 10:54 list reaction raspberry Allergy Pt did not Verified 04/10/24 10:54 list reaction Sugars, Metabolically Active Allergy Pt did not Verified 04/10/24 10:54 list reaction sulfur dioxide Allergy Pt did not Verified 04/10/24 10:54 list reaction tramadol Allergy Pt did not Verified 04/10/24 10:54 list reaction walnut Allergy Pt did not Verified 04/10/24 10:54 list reaction wheat Allergy Pt did not Verified 04/10/24 10:54 list reaction naproxen AdvReac Gastrointestinal Verified 04/10/24 10:54 Upset cantaloupe Allergy Pt did not Uncoded 11/21/23 10:43 list reaction pcn AdvReac Unknown Uncoded 11/21/23 10:43 pain medication AdvReac Nausea, Uncoded 11/21/23 10:43 makes me non-functional Review of Systems Review of Systems Narrative: Positive for fever, flank pain and general malaise. Negative for chills, sweats, nausea, vomiting, chest pain, coughing, sore throat, headache, bleeding, rashes, new allergies. Exam Vital Signs (past 8 hours): - 04/10/24 10:47 04/10/24 10:51 04/10/24 10:52 Temperature 98.5 F Pulse Rate 88 83 Respiratory Rate 15 Blood Pressure 178/77 H 178/77 H Pulse Oximetry 94 98 Oxygen Delivery Method Room Air 04/10/24 11:00 04/10/24 11:22 04/10/24 11:22 Temperature Pulse Rate 82 78 Respiratory Rate Blood Pressure 142/65 H Pulse Oximetry 96 98 Oxygen Delivery Method 04/10/24 11:30 04/10/24 11:30 04/10/24 12:12 Temperature Pulse Rate 79 79 Respiratory Rate 18 Blood Pressure 138/55 L Pulse Oximetry 99 100 Oxygen Delivery Method 04/10/24 12:12 04/10/24 12:30 04/10/24 12:30 Temperature Pulse Rate 78 Respiratory Rate 17 Blood Pressure 169/72 H 159/72 H Pulse Oximetry 100 Oxygen Delivery Method Oxygen Delivery Method Room Air Narrative Exam Narrative: Alert and oriented x3. No apparent distress. Pupils are equally round and reactive to light and accommodation. Sclerae are pink and nonicteric. Extraocular muscles are intact. No lymph nodes are felt head, neck, supraclavicular area There is no thyromegaly JVD is less than 6 cm No carotid bruits are heard Heart is regular rate and rhythm without murmur Lungs are clear to auscultation bilaterally Abdomen is soft, bowel sounds positive, nontender, no organomegaly. There is no flank tenderness. Extremities have no ankle edema Skin has no rash or jaundice Neurologic exam: There is no tremor. Motor function is 5/5 throughout. Cranial nerves 2-12 test intact Objective Labs 04/10/24 11:05 04/10/24 11:05 Labs: Laboratory Results - last 24 hr 04/10/24 04/10/24 11:05 12:00 WBC 10.0 RBC 4.78 Hgb 13.9 Hct 41.6 MCV 87.1 MCH 29.2 MCHC 33.5 RDW 14.0 Plt Count 222 Neut % (Auto) 88.0 H Lymph % (Auto) 5.5 L [place] % (Auto) 5.8 Eos % (Auto) 0.2 L Baso % (Auto) 0.5 Neut # (Auto) 8800 H Lymph # (Auto) 500 L [place] # (Auto) 600 Eos # (Auto) 0 Baso # (Auto) 0 Sodium 137 Potassium 3.7 Chloride 103 Carbon Dioxide 26 BUN 23 H Creatinine 1.14 H Estimated GFR 51 L BUN/Creatinine Ratio 20.2 Glucose 81 Lactate 1.0 Calcium 9.3 Total Bilirubin 0.8 AST 25 ALT 19 Alkaline Phosphatase 110 Total Protein 7.4 Albumin 4.5 Globulin 2.9 Albumin/Globulin Ratio 1.6 Procalcitonin 0.160 Urine Color Yellow Urine Appearance Clear Urine pH 5.5 Ur Specific [place] 1.010 Urine Protein Trace H Urine Glucose (UA) Negative Urine Ketones Trace H Urine Occult Blood Trace-intact Urine Nitrate Negative Urine Bilirubin Negative Urine Urobilinogen 0.2 Ur Leukocyte Esterase 1+ H Urine RBC 0-1/hpf Urine WBC 5-10/hpf H Ur Squamous Epith Cells 1-5 /hpf Urine Bacteria None seen Ur Culture Indicated? Specimen cultured Vol Urine Centrifuged 10ml (spun) Assessment & Plan Assessment & Plan narrative: This is a 73-year-old female with CKD, coronary artery disease, hypertension, hyperlipidemia and GERD who presents with reported blood cultures positive for Gram-negative bacilli 2/2. These were done yesterday at [facility] Emergency Department in [place]. Bacteremia, present on admission -source is likely urinary but no positive urine culture is reported from her ED visit yesterday. -gram-negative bacilli on blood culture x2 -ceftriaxone IV, repeat urine and blood cultures here, decide duration of treatment and location of IV treatment in the next few days -consider alternative sources if urine cultures are not positive. Hypertension, present on admission -continue losartan, atenolol and aspirin GERD -continue pantoprazole DVT prevention-patient is quite mobile, continue enoxaparin for now. Time-Based Coding :: [TOTAL MINUTES] spent with patient and on the chart (including review of chart, obtaining history, exam, reviewing outside data, placing orders, documenting exam and treatment plan, and counseling patient) on [DATE].
[2024-04-10] MEDS: SODIUM CHLORIDE 0.9% 1,000 ML 60 ML IV (14:09)
--- NOTE | 2024-04-10 19:11 | PM.CN.IH.1 ---
History of Present Illness Consult details Date Patient Seen: 04/10/24 Time Patient Seen: 19:11 Chief complaint: poss sepsis Reason for consult: Concern for right pyelonephritis, bacteremia Narrative: 73 y/o F currently admitted for management of right pyelonephritis and bacteremia. Briefly, she was developed bilateral flank pain, right greater than left, earlier in the week. She describes the pain as a strong dull ache that did not radiate anywhere. She also suffered from dysuria and questionable frequency (was drinking a lot of fluids at the time). She then started to feel unwell and was noted to have a Tm of 102F. Of note, she was found to have a RBUS performed at as an outpatient on 08 Apr 2024 that was notable for moderate right-sided hydronephrosis, otherwise unremarkable. She was then evaluated at [facility] in [place], [place] on 09 Apr 2024. This was notable for a UA (15-20 WBC, 3-5 RBC, no squams, negative nitrite), sCr 1.11, WBC 12.[address] Abd/Pel w/ contrast that was notable for a right renal pelvis that was moderately distended w/ no right hydroureter, no stones bilaterally and no left hydroureteronephrosis. She was ultimately diagnosed w/ a UTI and discharged home on a 7 day course of Omnicef. She was contacted earlier this morning and informed that her BCx's x2 were notable for GNB and instructed to return to hear nearest hospital. Her evaluation in the ER was notable for a WBC of 10, sCr 1.14, UA (5-10 WBC, 0 RBC, no squam, negative nitrite). She was subsequently admitted for IV antibiotics via Rocephin. Urology was consulted regarding hydronephrosis in the setting of moderate right hydronephrosis. Meds Home Medications and Allergies Home Medications Medication Instructions Recorded Confirmed Type aspirin 325 mg tablet 81 mg PO DAILY 11/15/18 04/10/24 History losartan 50 mg tablet 50 mg PO DAILY 11/21/23 04/10/24 History omeprazole 20 mg capsule,delayed 40 mg (2 x 20 mg) PO DAILY for 12/23/23 04/10/24 Rx release stomach symptoms #60 caps Allergies Allergy/AdvReac Type Severity Reaction Status Date / Time adhesive tape Allergy Pt did not Verified 04/10/24 10:54 list reaction almond Allergy Pt did not Verified 04/10/24 10:54 list reaction coconut Allergy Pt did not Verified 04/10/24 10:54 list reaction iodine Allergy Pt did not Verified 04/10/24 10:54 list reaction latex Allergy Pt did not Verified 04/10/24 10:54 list reaction loratadine Allergy Pt did not Verified 04/10/24 10:54 list reaction milk Allergy Pt did not Verified 04/10/24 10:54 list reaction pecan nut Allergy Pt did not Verified 04/10/24 10:54 list reaction Penicillins Allergy Pt did not Verified 04/10/24 10:54 list reaction raspberry Allergy Pt did not Verified 04/10/24 10:54 list reaction Sugars, Metabolically Active Allergy Pt did not Verified 04/10/24 10:54 list reaction sulfur dioxide Allergy Pt did not Verified 04/10/24 10:54 list reaction tramadol Allergy Pt did not Verified 04/10/24 10:54 list reaction walnut Allergy Pt did not Verified 04/10/24 10:54 list reaction wheat Allergy Pt did not Verified 04/10/24 10:54 list reaction naproxen AdvReac Gastrointestinal Verified 04/10/24 10:54 Upset cantaloupe Allergy Pt did not Uncoded 11/21/23 10:43 list reaction pcn AdvReac Unknown Uncoded 11/21/23 10:43 pain medication AdvReac Nausea, Uncoded 11/21/23 10:43 makes me non-functional Review of Systems Review of Systems Narrative: CONSTITUTIONAL: Denies weight loss, chills. HEENT: Denies change in vision, hearing. RESP: Denies SOB, cough. CV: Denies palpations, CP. GI: Denies abdominal pain, nausea, vomiting, diarrhea. : Denies hematuria, inability to void. MSK: Denies myalgia, joint pain. SKIN: Denies rash, pruritus. NEURO: Denies headache, syncope. PSYCH: Denies recent change in mood, anxiety, depression. Exam Vital Signs (past 8 hours): - 04/10/24 11:22 04/10/24 11:22 04/10/24 11:30 Temperature Pulse Rate 78 79 Respiratory Rate Blood Pressure 142/65 H Pulse Oximetry 98 99 Oxygen Flow Rate 04/10/24 11:30 04/10/24 12:12 04/10/24 12:12 Temperature Pulse Rate 79 Respiratory Rate 18 Blood Pressure 138/55 L 169/72 H Pulse Oximetry 100 Oxygen Flow Rate 04/10/24 12:30 04/10/24 12:30 04/10/24 13:42 Temperature 98.8 F Pulse Rate 78 90 Respiratory Rate 17 18 Blood Pressure 159/72 H 151/61 H Pulse Oximetry 100 99 Oxygen Flow Rate 0 Oxygen Delivery Method Room Air Oxygen Flow Rate 0 Narrative Exam Narrative: GEN: Alert and oriented X3. No acute distress. Well-nourished. EYES: PERRLA, EOMI. HENT: Moist mucus membranes, no scleral icterus, normal neck ROM. RESP: Unlabored breathing, equal rise and fall of chest bilaterally, no cyanosis appreciated. CV: No peripheral edema, unremarkable heart rate. ABD: Soft, non-tender, non-distended, no palpable masses. : R CVAT, no L CVAT. EXT: No edema, clubbing or cyanosis. SKIN: No rashes or lesions. NEURO: No focal neurologic deficits, CN II-XII grossly intact. PSYCH: Cooperative, appropriate mood and affect. Objective Labs 04/10/24 11:05 04/10/24 11:05 Labs: Laboratory Results - last 24 hr 04/10/24 04/10/24 11:05 12:00 WBC 10.0 RBC 4.78 Hgb 13.9 Hct 41.6 MCV 87.1 MCH 29.2 MCHC 33.5 RDW 14.0 Plt Count 222 Neut % (Auto) 88.0 H Lymph % (Auto) 5.5 L [place] % (Auto) 5.8 Eos % (Auto) 0.2 L Baso % (Auto) 0.5 Neut # (Auto) 8800 H Lymph # (Auto) 500 L [place] # (Auto) 600 Eos # (Auto) 0 Baso # (Auto) 0 Sodium 137 Potassium 3.7 Chloride 103 Carbon Dioxide 26 BUN 23 H Creatinine 1.14 H Estimated GFR 51 L BUN/Creatinine Ratio 20.2 Glucose 81 Lactate 1.0 Calcium 9.3 Total Bilirubin 0.8 AST 25 ALT 19 Alkaline Phosphatase 110 Total Protein 7.4 Albumin 4.5 Globulin 2.9 Albumin/Globulin Ratio 1.6 Procalcitonin 0.160 Urine Color Yellow Urine Appearance Clear Urine pH 5.5 Ur Specific [place] 1.010 Urine Protein Trace H Urine Glucose (UA) Negative Urine Ketones Trace H Urine Occult Blood Trace-intact Urine Nitrate Negative Urine Bilirubin Negative Urine Urobilinogen 0.2 Ur Leukocyte Esterase 1+ H Urine RBC 0-1/hpf Urine WBC 5-10/hpf H Ur Squamous Epith Cells 1-5 /hpf Urine Bacteria None seen Ur Culture Indicated? Specimen cultured Vol Urine Centrifuged 10ml (spun) PFSH Medical History SVT (supraventricular tachycardia) Chronic kidney disease Breast cancer screening Post-menopausal Diverticulosis Rectal cancer (~07/2017) Myocardial infarct (~2014) CAD (coronary artery disease), [place] coronary artery Chronic neck and back pain History of angina Diverticulitis (~2004) HLD (hyperlipidemia) HTN (hypertension) Fibroid Colon polyp Hx of varicose veins Surgical History History of colonoscopy with polypectomy (~07/2017) History of dilation and curettage (~2005) Hx of heart artery stent (~2014) [place] teeth removed Hx of carpal tunnel repair Hx of shoulder surgery Hx of foot surgery History of cardiac catheterization (~2014) Social History household members: family Tobacco & Substance Use Smoking Status: Never smoker alcohol intake: current Assessment & Plan Assessment and plan (1) Pyelonephritis of right kidney: Status: Acute Plan: 73 y/o F w/ h/o recurrent UTI's noted to have findings consistent w/ right pyelonephritis and positive BCx's x2 w/in the last 24 hours. Discussed at length that her sCr is at her baseline, going back more than 3 years. Discussed that her RBUS and CT Abd/Pel were both notable for moderate right hydronephrosis in the absence of right hydroureter (no prior imaging for comparison). Discussed that this is more than likely a chronic process and that there is no acute indication for Urological intervention. - Agree w/ IV Rocephin at the moment - Recommend BCx or UCx directed oral antibiotics when data is available - Appreciate assistance of hospitalist w/ management of this patient - Please reconsult Urology should any additional questions or concerns arise Time-Based Coding :: [TOTAL MINUTES] spent with patient and on the chart (including review of chart, obtaining history, exam, reviewing outside data, placing orders, documenting exam and treatment plan, and counseling patient) on [DATE]. PROFEE Charge Codes Inpatient or Observation consultation: [id number]
[2024-04-10] MEDS: LATANOPROST 0.005% OPHTH 2.5 ML 1 DROPS EYE-BOTH (20:27)
[2024-04-10] MEDS: ACETAMINOPHEN 325 MG TABLET 650 MG PO (20:27)
[2024-04-10] MEDS: SODIUM CHLORIDE 0.9% FLUSH 10 ML IV (20:47)
--- NOTE | 2024-04-10 23:23 | PC.NURSE ---
Patient is alert and oriented. Breath sounds CTA with RA sat of 97%. HRR. Denied nausea. BT present and is passing flatus. Denied dysuria, frequency or urgency with urination. Is able to turn herself in bed and is getting out of bed independently without use of AD. Did complain of generalized pain as well as lower back pain right > left so was medicated with Tylenol with reduction in pain sensation and is currently asleep. Refusing SCD's at night as is unable to sleep with them on even in nighttime mode. Fall risk score is moderate but is steady on feet so alarm is not in use. Reminded to sit on edge of bed when getting up and if lightheaded, dizzy or feeling weak she was instructed to call for assistance; verbalized understanding.
[2024-04-11] MEDS: SODIUM CHLORIDE 0.9% 1,000 ML 60 ML IV (05:24)
[2024-04-11] MEDS: PANTOPRAZOLE DR 40 MG TABLET PO (05:27)
[2024-04-11 06:36] LABS: Add Manual Diff / Slide Review NO; Basophils Absolute Auto 0 /uL (0-100); Basophils Percent Auto 0.8 % (0-2); Eosinophils Absolute Auto 100 /uL (0-450); Eosinophils Percent Auto 1.9 % (2-4); Hematocrit 37.9 % (36-46); Hemoglobin 12.8 g/dL (12.0-16.0); Lymphocytes Absolute Auto 800 /uL (1100-4500); Lymphocytes Percent Auto 15.1 % (25-40); Mean Corpuscular HGB Conc 33.8 % (30-36); Mean Corpuscular Hemoglobin 29.5 PG (26-34); Mean Corpuscular Volume 87.3 fL (80-100); Monocytes Absolute Auto 600 /uL (0-900); Monocytes Percent Auto 10.5 % (3-14); Neutrophils Absolute Auto 3900 /uL (1500-7000); Neutrophils Percent Auto 71.7 % (50-75); Platelet Count 178 X10^3/uL (150-400); Red Blood Cell Count 4.34 X10^6/uL (4.0-5.2); Red Cell Distribution Width 13.8 % (11.6-14.8); White Blood Cell Count 5.4 X10^3/uL (4.5-11.0)
[2024-04-11 06:58] LABS: BUN Creatinine Ratio 18.8 (6-22); Blood Urea Nitrogen 19 mg/dL (7-17); Calcium 8.7 mg/dL (8.4-10.2); Carbon Dioxide 20 mmol/L (22-32); Chloride 108 mmol/L (98-107); Estimated Glomerular Filt Rate 58 mL/min (>60); Glucose 89 mg/dL (80-110); HEMOLYSIS < 15 (0-50); Potassium 3.6 mmol/L (3.4-5.1); Sodium 136 mmol/L (137-145)
--- NOTE | 2024-04-11 07:39 | P.PN_ITS ---
Subjective Subjective Interval history: Pyelonephritis, chronic hydronephrosis, and bacteremia. The blood cultures were reported to be positive in [place], are repeat cultures are pending. S: She feels much better today. No pain, fevers, or chills. She was a retired microbiology lab technician. She lives on [address] [facility]. Exam Vital Signs (past 8 hours): Oxygen Delivery Method Room Air Oxygen Flow Rate 0 Narrative Exam Narrative: NAD, alert and oriented. Fluent speech. Lungs are clear, normal rate and effort. Heart is regular, no murmur gallop or rub. Abdomen is soft, non distended. Extremities are free of edema. Objective Labs 04/11/24 06:10 04/11/24 06:10 Labs: Laboratory Results - last 24 hr 04/10/24 04/10/24 04/11/24 11:05 12:00 06:10 WBC 10.0 5.4 RBC 4.78 4.34 Hgb 13.9 12.8 Hct 41.6 37.9 MCV 87.1 87.3 MCH 29.2 29.5 MCHC 33.5 33.8 RDW 14.0 13.8 Plt Count 222 178 Neut % (Auto) 88.0 H 71.7 Lymph % (Auto) 5.5 L 15.1 L [place] % (Auto) 5.8 10.5 Eos % (Auto) 0.2 L 1.9 L Baso % (Auto) 0.5 0.8 Neut # (Auto) 8800 H 3900 Lymph # (Auto) 500 L 800 L [place] # (Auto) 600 600 Eos # (Auto) 0 100 Baso # (Auto) 0 0 Sodium 137 136 L Potassium 3.7 3.6 Chloride 103 108 H Carbon Dioxide 26 20 L BUN 23 H 19 H Creatinine 1.14 H 1.01 Estimated GFR 51 L 58 L BUN/Creatinine Ratio 20.2 18.8 Glucose 81 89 Lactate 1.0 Calcium 9.3 8.7 Total Bilirubin 0.8 AST 25 ALT 19 Alkaline Phosphatase 110 Total Protein 7.4 Albumin 4.5 Globulin 2.9 Albumin/Globulin Ratio 1.6 Procalcitonin 0.160 Urine Color Yellow Urine Appearance Clear Urine pH 5.5 Ur Specific [place] 1.010 Urine Protein Trace H Urine Glucose (UA) Negative Urine Ketones Trace H Urine Occult Blood Trace-intact Urine Nitrate Negative Urine Bilirubin Negative Urine Urobilinogen 0.2 Ur Leukocyte Esterase 1+ H Urine RBC 0-1/hpf Urine WBC 5-10/hpf H Ur Squamous Epith Cells 1-5 /hpf Urine Bacteria None seen Ur Culture Indicated? Specimen cultured Vol Urine Centrifuged 10ml (spun) PFSH Medical History SVT (supraventricular tachycardia) Chronic kidney disease Breast cancer screening Post-menopausal Diverticulosis Rectal cancer (~07/2017) Myocardial infarct (~2014) CAD (coronary artery disease), [place] coronary artery Chronic neck and back pain History of angina Diverticulitis (~2004) HLD (hyperlipidemia) HTN (hypertension) Fibroid Colon polyp Hx of varicose veins Surgical History History of colonoscopy with polypectomy (~07/2017) History of dilation and curettage (~2005) Hx of heart artery stent (~2014) [place] teeth removed Hx of carpal tunnel repair Hx of shoulder surgery Hx of foot surgery History of cardiac catheterization (~2014) Social History household members: family Smoking Status: Never smoker alcohol intake: current Assessment & Plan Assessment & Plan narrative: 1. Bacteremia, present on admission and active. 2. Pyelonephritis, present on admission and active. 3. Chronic hydronephrosis, present on admission and active. 4. Hypertension, present on admission and stable. -continue losartan, atenolol and aspirin 5. GERD, stable. -continue pantoprazole Plan: -stop IV fluids -continue IV antibiotics for another 24 hours and follow 2nd set of cultures to prove that they have cleared. DVT prevention-patient is quite mobile, continue enoxaparin for now. Time-Based Coding :: [TOTAL MINUTES] spent with patient and on the chart (including review of chart, obtaining history, exam, reviewing outside data, placing orders, documenting exam and treatment plan, and counseling patient) on [DATE]. Quality VTE Deep Vein Thrombosis/Pulmonary Embolism Present on Admission: No
[2024-04-11] MEDS: ENOXAPARIN 40 MG/0.4 ML SYRINGE SUBCUT (09:58)
[2024-04-11] MEDS: LOSARTAN 50 MG TABLET PO (09:59)
[2024-04-11] MEDS: cefTRIAXone 1,000 MG in SODIUM CHLORIDE 0.9% 100 ML 200 MG IV (12:36)
[2024-04-11 13:00] VITALS: BP 132/66; PULSE 68; RESP 16; TEMP 36.2; O2SAT 98
--- NOTE | 2024-04-11 15:52 | CM.DANOTE ---
Initial DCP Assessment Visit Note Reviewed EMR and team rounds for status updates. Met with pt at bedside to introduce self and role, pt was found to be alert/oriented, able to discuss her home living situation and family support available. Pt resides independently at baseline in her own home with her daughter. She has another dtr that also resides close to her. Family will transport once she's medically cleared for home d/c. Payor: [facility] PCP: Dr. Bocanegra Pt is a 73 year-old F who was airlifted to [facility] 2-days ago with worsening flank pain and fevers. Her labs there were positive for pyelonephritis, hydroephrosis, and bacteremia. [place] labs. She then presented to for repeat eval and new lab cultures, which remain pending. Pt was started on IV ABO's and fluids, and is being monitored for further tx needs, pending the results of the cultures. DCP will continue to monitor for any further CM d/c assistance needs. Pt may need a [employer] [place] [place] at d/c if they cannot obtain a reservation. Discharge Planning/Care Management Advanced directive, confirm from FAMILY Start: 04/10/24 15:22 Freq: Q24H Status: Complete Protocol: Document 04/10/24 15:22 YAD (Rec: 04/10/24 17:34 YAD [id number]) Advance Directive, confirm on record Time 17:33 Person contacted Pt Copy received No Document 04/11/24 15:12 YAD (Rec: 04/11/24 15:12 YAD [id number]) Advance Directive, confirm on record Time 17:33 Person contacted Pt Copy received No Time 15:12 Person contacted Pt Copy received No CM Discharge Assessment Start: 04/11/24 14:50 Freq: Status: Active Protocol: Document 04/11/24 14:50 DPL (Rec: 04/11/24 14:59 DPL [id number]) Discharge Planning Assessment Assigned [employer] Bpm Consultant JAY Smalls Advance Directives? No Advance Directives on File No History Provided By Patient,Medical Record Has Patient been admitted in last 30 No days? Prior Living Arrangements House Household Members family Comment Dtr Type of transporation used prior to Drives own vehicle admit Caregiver for Another No Comment N/A Comment No identified home d/c needs identified at this time. Barriers to Discharge No Discharge Plan Home Transportation Arrangement Daughter Referrals Initiated None needed Whiteboard Updated in Patient Room with Yes name and ext. # of [employer] Bpm Consultant Review Status In Process Please Provide Date Initial DC 04/11/24 Assessment Was Performed
[2024-04-11 16:57] VITALS: BP 126/66; PULSE 66; RESP 15; TEMP 36; O2SAT 98
[2024-04-11 20:00] VITALS: BP 173/82; PULSE 71; RESP 19; TEMP 36.5; O2SAT 99
[2024-04-11] MEDS: LATANOPROST 0.005% OPHTH 2.5 ML 1 DROPS EYE-BOTH (20:25)
[2024-04-11] MEDS: ASPIRIN EC 81 MG TABLET PO (20:25)
[2024-04-11] MEDS: SODIUM CHLORIDE 0.9% FLUSH 10 ML IV (20:25)
[2024-04-11 20:45] VITALS: BP 155/76; PULSE 84
[2024-04-12] MEDS: PANTOPRAZOLE DR 40 MG TABLET PO (05:52)
[2024-04-12] MEDS: LOSARTAN 50 MG TABLET PO (09:49)
[2024-04-12] MEDS: SODIUM CHLORIDE 0.9% FLUSH 10 ML IV (09:49)
[2024-04-12] MEDS: cefTRIAXone 1,000 MG in SODIUM CHLORIDE 0.9% 100 ML 200 MG IV (11:03)
--- NOTE | 2024-04-12 12:13 | CM.DPC ---
DCP Continued: Reviewed EMR and team rounds for pt?s medical status. Per hospitalist, pt cleared to discharge home with family today. DCP entered room, introduced self and role. Pt states her daughter was able to obtain a ferry reservation for today and has no other needs before discharge. Plan: Anticipating discharge home with daughter. CM Team will continue to follow for coordination of discharge plans. TORIBIO Yung
--- NOTE | 2024-04-12 13:11 | PC.NURSE ---
Day shift: Left unit at approx 1300. Paperwork signed and all questions answered. Pt has all personal belongings. Family is driving her back to [employer]. Pt ambulated to that car and tolerated very well. scripts sent to Pt's pharmacy.
--- NOTE | 2024-04-12 17:10 | P.DS_ITS ---
History of Present Illness History of Present Illness Chief complaint: poss sepsis Narrative: From H&P: This is a 73-year-old female with CKD, coronary artery disease, hypertension, hyperlipidemia and GERD who presents with reported blood cultures positive for Gram-negative bacilli 2/. These were done yesterday at [facility] in [place]. She lives on [address] so was staying over here last night and then was in the [place] line when she got a call about the positive blood cultures. She takes D-Mannose for UTI suppression and says she can not recall the last time she had one. She has had right flank pain for 2 days and then yesterday when she got a temperature of 102? she was flown up to [place] for ED attention. Her CT showed that the right renal hemipelvis was dilated with mild hydronephrosis but no actual mass or renal stone was visualized. She is afebrile here despite the bacteremia. She had been given a dose of ceftriaxone in the ED and then started on Omnicef orally today. Urology has been contacted from the emergency department to consult. The UA done yesterday showed 15-20 wbc's and negative nitrites. The wbc in the urine here today is 5-10 and the nitrates are again negative. The white blood count was 12.3 yesterday and is now 10.0. Discharge Providers Provider Date of admission: 04/10/24 11:57 Discharge Date: 04/12/24 Primary care physician: Roselia Bocanegra MD Consults: Urology, Dr. Nina. Discharge provider: Ed Kyle MD Summary Hospital Course Discharge Diagnosis: 1. Bacteremia (pansensitive E. coli), present on admission and active. 2. Pyelonephritis, present on admission and active. 3. Chronic hydronephrosis, present on admission and active. 4. Hypertension, present on admission and stable. -continue losartan, atenolol and aspirin 5. GERD, stable. -continue pantoprazole Hospital Course: Patient was admitted and started on IV antibiotics after receiving a phone call indicated that her blood cultures were positive at [facility] where she had recently been discharged for a kidney infection. The patient was continued on ceftriaxone here repeat blood cultures here were negative. Her urine culture was negative. I got her cultures from [facility] and this indicated a pansensitive E coli bacteremia. The patient was clinically improved and felt to be stable for discharge on oral fluoroquinolones in the day of discharge. She was seen by Urology and there was no recommendation for acute intervention for her presumed chronic hydronephrosis. Status at Discharge Cognitive/behavioral status at discharge: oriented Functional status at discharge: independent ambulation Overall status at discharge: patient is back to baseline Time Spent with Patient Time spent: Greater than 30 minutes Exam Vital Signs (past 8 hours): Oxygen Delivery Method Room Air Oxygen Flow Rate 0 Narrative Exam Narrative: NAD, alert and oriented. Fluent speech. Lungs are clear, normal rate and effort. Heart is regular, no murmur gallop or rub. Abdomen is soft, non distended. Extremities are free of edema. Objective Imaging Renal US: : Radiologist's impression: Moderate right-sided hydronephrosis. Obstructive process not excluded. Consider CT. Increased renal parenchymal echogenicity, which may indicate acute or chronic kidney disease. Labs 04/11/24 06:10 04/11/24 06:10 [facility] Medical History SVT (supraventricular tachycardia) Chronic kidney disease Breast cancer screening Post-menopausal Diverticulosis Rectal cancer (~07/2017) Myocardial infarct (~2014) CAD (coronary artery disease), [place] coronary artery Chronic neck and back pain History of angina Diverticulitis (~2004) HLD (hyperlipidemia) HTN (hypertension) Fibroid Colon polyp Hx of varicose veins Surgical History History of colonoscopy with polypectomy (~07/2017) History of dilation and curettage (~2005) Hx of heart artery stent (~2014) [place] teeth removed Hx of carpal tunnel repair Hx of shoulder surgery Hx of foot surgery History of cardiac catheterization (~2014) Social History household members: family Smoking Status: Never smoker alcohol intake: current Discharge Assessment & Plan Assessment and Plan Assessment: 1. Bacteremia (pansensitive E. coli), present on admission and active. 2. Pyelonephritis, present on admission and active. 3. Chronic hydronephrosis, present on admission and active. Plan of Treatment: Discharge home on an additional 12 days of Cipro 500 b.i.d.. Close follow up with her PCP. She lives on [address]. Discharge Plan Discharge Plan Patient Disposition: Home Provider Discharge Comment: Stable for discharge home on a 14 day course of quinolones. Discharge orders & Medications Prescriptions: New ciprofloxacin HCl [Cipro] 500 mg tablet 500 mg PO BID Qty: 24 0RF Continued omeprazole 20 mg capsule,delayed release(DR/EC) 40 mg PO DAILY Qty: 60 5RF losartan 50 mg tablet 50 mg PO DAILY No Action aspirin 81 mg Capsule,Delayed Release(Dr/Ec) 81 mg PO DAILY Follow up/Referrals: Roselia Bocanegra MD [Primary Care Provider] - Discharge Health Status Multidrug resistant organism: No MDRO Diet/Activity/Treatments Diet: Regular Activity: As tolerated. Skin/Wound/Dressing Care Report to your healthcare provider any signs of infection, such as:: chills, fever and increased pain Visit Report/Discharge Packet Instructions: DI for Kidney Infection, DI for Urinary Tract Infection (UTI), DI for Bacteremia-Adult Stand Alone Forms: Patient Portal/API Discharge Data Primary Care Provider: Roselia Bocanegra Attending Provider: Karthikeyan Ha Admit Date/Time: 04/10/24 11:57 Quality VTE Deep Vein Thrombosis/Pulmonary Embolism Present on Admission: No MIPS - DC The patient has a history of heart transplant or Left Ventricular Assist Device (LVAD). If yes, STOP here.: No The patient has current or prior documentation of left ventricular ejection fraction (LVEF) less than or equal to 40%, or moderate or severely depressed left ventricular systolic function.: No
--- NOTE | 2024-04-26 10:25 | PC.NURSE ---
late entry- per RN the 04/10 @ 1225 dose of ceftriaxone was completed after admission to the floor at 1400
== END 2024-04-12 13:00 | disposition home or self-care (01) ==
LOC: ED 11:15 → AC 11:58
PROVIDERS: Admitting Provider Family Medicine; Emergency Provider Emergency Medicine; PCP Family Medicine; Referring Provider Emergency Medicine; Visit Provider Family Medicine
DX: N13.6 Pyonephrosis (principal); R78.81 Bacteremia; N18.9 Chronic kidney disease, unspecified; I25.10 Atherosclerotic heart disease of native coronary artery without angina pectoris; I12.9 Hypertensive chronic kidney disease with stage 1 through stage 4 chronic kidney disease, or unspecified chronic kidney disease; E78.5 Hyperlipidemia, unspecified; K21.9 Gastro-esophageal reflux disease without esophagitis; Z91.040 Latex allergy status; Z88.0 Allergy status to penicillin; Z91.018 Allergy to other foods; B96.20 Unspecified Escherichia coli [E. coli] as the cause of diseases classified elsewhere
CPT/HCPCS: 36415; 51798; 80048; 80053; 81001; 83605; 84145; 85025; 87040; 87086; 96361; 96365; 96366; 99283; 99284; G0378; J0696; J1650

== ENCOUNTER → 2024-04-30 10:02 | Outpatient (CLI) | payer BC, SELFPAY ==
[2024-04-10 14:54] VITALS: BMI 27.3
== END ==
PROVIDERS: PCP Family Medicine; Visit Provider Family Medicine
DX: N18.9 Chronic kidney disease, unspecified (principal)
CPT/HCPCS: 87086

== ENCOUNTER → 2024-07-02 11:02 | Outpatient (CLI) | payer BC, SELFPAY ==
[2024-04-10 14:54] VITALS: BMI 27.3
[2024-07-02 19:06] LABS: Appearance Urine UA CLEAR; Bilirubin Urine UA NEGATIVE (NEGATIVE); Color Urine UA YELLOW; Glucose Urine UA NEGATIVE (Negative); Ketones Urine UA NEGATIVE (NEGATIVE); Leukocyte Esterase Urine UA NEGATIVE (NEGATIVE); Nitrite Urine UA NEGATIVE (Negative); Occult Blood Urine UA NEGATIVE (Negative); Protein Urine UA NEGATIVE (Negative); Specific Gravity Urine UA >=1.030 (1.000-1.035); Urobilinogen Urine UA 0.2 E.U./dL (0.2)
[2024-07-02 19:08] LABS: pH Urine UA 5.5 (4.5-8.0)
[2024-07-02 19:10] LABS: BUN Creatinine Ratio 26.8 (6-22); Blood Urea Nitrogen 30 mg/dL (7-17); Calcium 9.1 mg/dL (8.4-10.2); Carbon Dioxide 28 mmol/L (22-32); Chloride 106 mmol/L (98-107); Estimated Glomerular Filt Rate 52 mL/min (>60); Glucose 76 mg/dL (80-110); HEMOLYSIS 17 (0-50); Potassium 4.1 mmol/L (3.4-5.1); Sodium 141 mmol/L (137-145)
[2024-07-02 19:14] LABS: Amorphous Sediment Urine 1+; Bacteria Urine Occasional (0-1); Calcium Oxalate Crystals Urine Moderate; Culture Indicated Urine Cult Not Indicated; RBC Urine 0-1/HPF (0-5/HPF); Squamous Epithelial Cell Urine 0-1 /HPF (0-5/HPF); Urine Volume 10mL (spun); WBC Urine 0-1/HPF (0-5/HPF)
[2024-07-02 19:21] LABS: Creatinine Urine Random 196.33 mg/dL
[2024-07-02 19:26] LABS: Microalbumin Urine Random 2.7 mg/dL (0-1.6)
== END ==
PROVIDERS: PCP Family Medicine; Visit Provider Family Medicine
DX: I10 Essential (primary) hypertension (principal)
CPT/HCPCS: 80048; 81001; 82043; 82570

== ENCOUNTER → 2024-10-01 10:38 | Outpatient (CLI) | payer BC, SELFPAY ==
[2024-04-10 14:54] VITALS: BMI 27.3
[2024-10-01 19:40] LABS: Blood Urea Nitrogen 26 mg/dL (7-17); Calcium 9.5 mg/dL (8.4-10.2); Carbon Dioxide 26 mmol/L (22-32); Chloride 105 mmol/L (98-107); Estimated Glomerular Filt Rate 54 mL/min (>60); Glucose 78 mg/dL (70-99); HEMOLYSIS < 15 (0-50); Potassium 4.5 mmol/L (3.4-5.1); Sodium 138 mmol/L (137-145)
== END ==
PROVIDERS: PCP Family Medicine; Visit Provider Family Medicine
DX: I12.9 Hypertensive chronic kidney disease with stage 1 through stage 4 chronic kidney disease, or unspecified chronic kidney disease (principal); N18.9 Chronic kidney disease, unspecified
CPT/HCPCS: 80048

== ENCOUNTER → 2025-03-11 09:29 | Outpatient (CLI) | payer BC, SELFPAY ==
[2024-04-10 14:54] VITALS: BMI 27.3
[2025-03-11 18:59] LABS: Hematocrit 40.0 % (36-46); Hemoglobin 13.7 g/dL (12.0-16.0); Mean Corpuscular HGB Conc 34.1 % (30-36); Mean Corpuscular Hemoglobin 29.4 PG (26-34); Mean Corpuscular Volume 86.0 fL (80-100); Platelet Count 269 X10^3/uL (150-400)
[2025-03-11 19:11] LABS: Lipase 39 U/L (23-300)
[2025-03-11 19:12] LABS: Hemoglobin A1C% w Est Avg Glu 5.6 % (4.0-6.0)
[2025-03-11 19:15] LABS: Alanine Aminotransferase 22 IU/L (<35); Albumin 3.7 g/dL (3.5-5.0); Albumin Globulin Ratio 1.5 (1.0-2.8); Alkaline Phosphatase 87 U/L (38-126); Blood Urea Nitrogen 13 mg/dL (7-17); Calcium 9.3 mg/dL (8.4-10.2); Carbon Dioxide 27 mmol/L (22-32); Chloride 112 mmol/L (98-107); Cholesterol 216 mg/dL (140-199); Estimated Glomerular Filt Rate 51 mL/min (>60); Globulin 2.5 g/dL (1.7-4.1); Glucose 94 mg/dL (70-99); HDL Cholesterol 48 mg/dL (40-60); HEMOLYSIS < 15 (0-50); Potassium 4.0 mmol/L (3.4-5.1); Sodium 145 mmol/L (137-145); Total Protein 6.2 g/dL (6.3-8.2); Triglycerides 169 mg/dL (35-150)
[2025-03-11 19:37] LABS: Thyroid Stimulating Hormone 2.01 uIU/mL (0.47-4.68)
== END ==
PROVIDERS: Physician Assistant; PCP Family Medicine; Visit Provider Family Medicine
DX: Z13.1 Encounter for screening for diabetes mellitus (principal); I25.111 Atherosclerotic heart disease of native coronary artery with angina pectoris with documented spasm; I12.9 Hypertensive chronic kidney disease with stage 1 through stage 4 chronic kidney disease, or unspecified chronic kidney disease; N18.31 Chronic kidney disease, stage 3a; R79.89 Other specified abnormal findings of blood chemistry; E78.5 Hyperlipidemia, unspecified; K76.0 Fatty (change of) liver, not elsewhere classified; E66.9 Obesity, unspecified; R11.2 Nausea with vomiting, unspecified; R53.81 Other malaise
CPT/HCPCS: 80053; 80061; 83036; 83690; 84443; 85027; 87077; 87086